=== PATIENT | male | born 1950 | race Caucasian/White ===

== ENCOUNTER 2018-05-24 12:04 | Inpatient (IN) | payer MEDICARE, MEDICAID ==
[~2018-05-24] VITALS: Ht 185.4 cm; Wt 85.0 kg
[~2018-05-24 12:04] MED LIST: ALBU18HF2 IH; CYCL5TAB PO; SPIIN IH
[2018-05-24 12:42] LABS: BASOPHILS % (AUTO) 0 % (0-1); EOSINOPHILS # (AUTO) 0.4 X10'3 (0-0.9); EOSINOPHILS % (AUTO) 1.6 % (0-6); HEMATOCRIT 44.6 % (42.0-52.0); HEMOGLOBIN 14.8 g/dl (14.0-17.9); LYMPHOCYTES # (AUTO) 2.5 X10'3 (1.1-4.8); LYMPHOCYTES % (AUTO) 11.3 % (21-51); MEAN CORPUSCULAR HEMOGLOBIN 28.4 PG (27.0-31.0); MEAN CORPUSCULAR HGB CONC 33.3 % (33.0-36.5); MEAN CORPUSCULAR VOLUME 85.4 FL (78-98); MEAN PLATELET VOLUME 8.1 FL (7.4-10.4); MONOCYTES % (AUTO) 4.4 % (2-12); NEUTROPHILS # (AUTO) 18.5 X10'3 (1.8-7.7); NEUTROPHILS % (AUTO) 82.7 % (42-75); PLATELET COUNT 337 X10'3 (140-440); RED BLOOD COUNT 5.22 X10'6 (4.70-6.10); RED CELL DISTRIBUTION WIDTH 15.7 % (11.5-14.5); WHITE BLOOD COUNT 22.3 X10'3 (4.5-11.0)
[2018-05-24 13:29] LABS: ALANINE AMINOTRANSFERASE 26 U/L (12-78); ALBUMIN 4.3 G/DL (3.4-5.0); ALBUMIN/GLOBULIN RATIO 0.9 (1.1-1.5); ALKALINE PHOSPHATASE 106 IU/L (46-116); ANION GAP 13 (8-16); ASPARTATE AMINO TRANSFERASE 19 U/L (10-37); BILIRUBIN,TOTAL 0.5 MG/DL (0.1-1.0); BLOOD UREA NITROGEN 17 MG/DL (7-18); CHLORIDE 97 MMOL/L (99-107); CREATININE 1.06 MG/DL (0.60-1.10); GLUCOSE 109 MG/DL (70-104); POTASSIUM 4.9 MMOL/L (3.5-5.1); SODIUM 135 MMOL/L (135-145); TOTAL CARBON DIOXIDE 25.1 MMOL/L (24-32); TOTAL PROTEIN 9.3 G/DL (6.4-8.2); eGFR 70 ML/MIN
[2018-05-24 13:37] LABS: MAGNESIUM 1.8 MG/DL (1.5-2.4); TROPONIN I < 0.04 NG/ML (0.0-0.05)
[2018-05-24] MEDS ORDERED: normal saline 1000ML IV soln IV ONE (13:40)
[2018-05-24] MEDS ORDERED: albuterol 2.5 MG/3 ML nebule NEB ONE (13:45)
[2018-05-24] MEDS ORDERED: methylPREDNISolone sod succ 125mg/2ml vial IV ONE (13:45)
[2018-05-24] MEDS ORDERED: ipratropium/albuterol 3ml nebule NEB ONE (13:45)
[2018-05-24] MEDS ORDERED: piperacillin/tazo 3.375gm/50ml 50 ML IV ONE (13:50)
[2018-05-24 15:17] LABS: CLARITY,URINE CLEAR (Clear); COLOR,URINE YELLOW (Yellow); GLUCOSE, URINE NEGATIVE (Neg); KETONES,URINE TRACE mg/dl (Neg); LEUKOCYTE ESTERASE ,URINE NEGATIVE (Neg); NITRITES, URINE NEGATIVE (Neg); OCCULT BLOOD,URINE NEGATIVE (Neg); PROTEIN,URINE NEGATIVE (Neg); UROBILINOGEN,URINE 0.2 E.U/dL (0.2-1.0)
[2018-05-24] MEDS ORDERED: BUPR1FIL3 SL (15:18)
[2018-05-24 15:23] LABS: UA COLLECTION TYPE CLN CATCH MIDSTREAM
[2018-05-24] MEDS ORDERED: acetaminophen 325mg tablet PO STA (16:00)
[2018-05-24] MEDS ORDERED: ondansetron/PF 4mg/2ml inj IV PRN (16:45)
[2018-05-24] MEDS ORDERED: mag hydrox/Alum hydrox/simeth 30ml oral suspension PO PRN (16:45)
[2018-05-24] MEDS ORDERED: HYDROcodone/acetaminophen 5mg/325mg tablet PO PRN (16:45)
[2018-05-24] MEDS ORDERED: acetaminophen 325mg tablet PO PRN (16:45)
[2018-05-24] MEDS ORDERED: magnesium hydroxide 30ml (MOM) UD suspension PO PRN (16:45)
[2018-05-24] MEDS ORDERED: HYDROcodone/acetaminophen 10/325mg tab PO PRN (16:45)
[2018-05-24] MEDS ORDERED: morphine 4 MG/ML inj SYRINge IV PRN ×2 (16:45)
[2018-05-24] MEDS: ceFAZolin 1GM/D5W- ADD-VANTAGE 50 ML IV SCH ×2 (17:37→23:49)
[2018-05-24] MEDS: dextrose 5%-1/2 normal saline 1,000 ML IV SCH (17:37)
[2018-05-24] MEDS ORDERED: FLUT12AE5 IH (18:37)
[2018-05-24 19:20] VITALS: BP 141/64
[2018-05-24 23:30] VITALS: BP_SYST 110; BP_SYST 129; BP_SYST 99; BP_DIAS 49; BP_DIAS 65; BP_DIAS 66
[2018-05-25] VITALS: BP 99/49
[2018-05-25] MEDS: dextrose 5%-1/2 normal saline 1,000 ML IV SCH ×2 (02:48→12:58)
[2018-05-25] MEDS: ipratropium/albuterol 3ml nebule NEB SCH ×4 (03:58→21:37)
[2018-05-25 04:58] LABS: BASOPHILS % (AUTO) 0.1 % (0-1); EOSINOPHILS # (AUTO) 0.2 X10'3 (0-0.9); HEMATOCRIT 35.8 % (42.0-52.0); HEMOGLOBIN 10.5 g/dl (14.0-17.9); LYMPHOCYTES # (AUTO) 1.5 X10'3 (1.1-4.8); LYMPHOCYTES % (AUTO) 6.1 % (21-51); MEAN CORPUSCULAR HEMOGLOBIN 24.9 PG (27.0-31.0); MEAN CORPUSCULAR HGB CONC 29.2 % (33.0-36.5); MEAN CORPUSCULAR VOLUME 85.5 FL (78-98); MEAN PLATELET VOLUME 7.9 FL (7.4-10.4); MONOCYTES # (AUTO) 0.7 X10'3 (0-0.9); MONOCYTES % (AUTO) 2.9 % (2-12); NEUTROPHILS # (AUTO) 21.6 X10'3 (1.8-7.7); NEUTROPHILS % (AUTO) 89.9 % (42-75); PLATELET COUNT 227 X10'3 (140-440); RED BLOOD COUNT 4.19 X10'6 (4.70-6.10); RED CELL DISTRIBUTION WIDTH 15.9 % (11.5-14.5)
[2018-05-25 05:20] LABS: ALBUMIN 3.1 G/DL (3.4-5.0); ANION GAP 11 (8-16); BLOOD UREA NITROGEN 18 MG/DL (7-18); CALCIUM 8.6 MG/DL (8.5-10.1); CHLORIDE 103 MMOL/L (99-107); GLUCOSE 181 MG/DL (70-104); POTASSIUM 4.1 MMOL/L (3.5-5.1); SODIUM 137 MMOL/L (135-145); TOTAL CARBON DIOXIDE 23.4 MMOL/L (24-32); eGFR 84 ML/MIN
[2018-05-25 07:20] VITALS: BP 111/56
[2018-05-25 07:21] VITALS: BP_SYST 111; BP_SYST 115; BP_SYST 124; BP_DIAS 56; BP_DIAS 59; BP_DIAS 60
[2018-05-25] MEDS ORDERED: albuterol 2.5 MG/3 ML nebule NEB PRN (08:25)
[2018-05-25] MEDS ORDERED: buprenorphine/naloxone 8mg/2mg SL tablet SL SCH (08:45)
[2018-05-25] MEDS ORDERED: buprenorphine/naloxone 2-0.5mg sublingual tablet SL ONE (08:55)
[2018-05-25] MEDS: enoxaparin 40mg/0.4ml syringe SUBCUT SCH (09:32)
[2018-05-25] MEDS: ceFAZolin 1GM/D5W- ADD-VANTAGE 50 ML IV SCH ×2 (09:33→16:28)
[2018-05-25] MEDS: acetaminophen 325mg tablet PO PRN ×2 (09:34→21:36)
[2018-05-25] MEDS: budesonide 0.5mg/2ml UD nebule IH SCH ×2 (09:58→21:37)
[2018-05-25 12:32] VITALS: BP 98/49
[2018-05-25] MEDS ORDERED: cyclobenzaprine 10mg tablet PO PRN (13:00)
[2018-05-25 20:00] VITALS: BP_SYST 108; BP_SYST 126; BP_SYST 127; BP_DIAS 53; BP_DIAS 60; BP_DIAS 64
[2018-05-25] MEDS ORDERED: SALMETEROL IH SCH (20:00)
[2018-05-25] MEDS ORDERED: FLUTICASONE IH SCH (20:00)
[2018-05-26] VITALS: BP 109/58
[2018-05-26] MEDS: lactobacillus rhamnosus 10,000 MMU CELLS/CAPSULE PO SCH ×3 (00:05→21:38)
[2018-05-26] MEDS: ceFAZolin 1GM/D5W- ADD-VANTAGE 50 ML IV SCH ×2 (00:06→08:37)
[2018-05-26] MEDS: dextrose 5%-1/2 normal saline 1,000 ML IV SCH ×2 (00:06→11:16)
[2018-05-26] MEDS: ipratropium/albuterol 3ml nebule NEB SCH ×4 (03:08→20:02)
[2018-05-26 05:53] LABS: BASOPHILS % (AUTO) 0 % (0-1); EOSINOPHILS # (AUTO) 0.1 X10'3 (0-0.9); HEMATOCRIT 31.9 % (42.0-52.0); HEMOGLOBIN 10.6 g/dl (14.0-17.9); LYMPHOCYTES # (AUTO) 1.4 X10'3 (1.1-4.8); LYMPHOCYTES % (AUTO) 10.5 % (21-51); MEAN CORPUSCULAR HEMOGLOBIN 28.6 PG (27.0-31.0); MEAN CORPUSCULAR HGB CONC 33.3 % (33.0-36.5); MEAN CORPUSCULAR VOLUME 85.9 FL (78-98); MEAN PLATELET VOLUME 8.1 FL (7.4-10.4); MONOCYTES # (AUTO) 0.6 X10'3 (0-0.9); MONOCYTES % (AUTO) 4.4 % (2-12); NEUTROPHILS # (AUTO) 11.2 X10'3 (1.8-7.7); NEUTROPHILS % (AUTO) 84.1 % (42-75); PLATELET COUNT 204 X10'3 (140-440); RED BLOOD COUNT 3.71 X10'6 (4.70-6.10); RED CELL DISTRIBUTION WIDTH 15.6 % (11.5-14.5); WHITE BLOOD COUNT 13.3 X10'3 (4.5-11.0)
[2018-05-26 06:05] LABS: ALBUMIN 2.9 G/DL (3.4-5.0); ANION GAP 10 (8-16); BLOOD UREA NITROGEN 14 MG/DL (7-18); BUN/CREATININE RATIO 20.6 (5.4-32.0); CALCIUM 8.5 MG/DL (8.5-10.1); CHLORIDE 106 MMOL/L (99-107); CREATININE 0.68 MG/DL (0.60-1.10); GLUCOSE 137 MG/DL (70-104); POTASSIUM 3.7 MMOL/L (3.5-5.1); SODIUM 140 MMOL/L (135-145); TOTAL CARBON DIOXIDE 24.1 MMOL/L (24-32); eGFR > 90 ML/MIN
[2018-05-26 07:00] VITALS: BP_SYST 127; BP_SYST 129; BP_SYST 145; BP_DIAS 67; BP_DIAS 73; BP_DIAS 76
[2018-05-26] MEDS: budesonide 0.5mg/2ml UD nebule IH SCH ×2 (07:16→20:02)
[2018-05-26] MEDS ORDERED: non-formulary drug (Tiotropium Bromide (SPIRIVA inhaler) 1 CAP) IH SCH (08:00)
[2018-05-26] MEDS: enoxaparin 40mg/0.4ml syringe SUBCUT SCH (08:38)
[2018-05-26] MEDS: buprenorphine/naloxone 2-0.5mg sublingual tablet SL SCH (08:38)
[2018-05-26] MEDS ORDERED: vancomycin/NS 1 GM ADD-VANTAGE 250 ML IV SCH (10:40)
[2018-05-26] MEDS: vancomycin inj 1,250 MG in normal saline 250ml IV soln 250 ML IV SCH ×2 (11:16→21:38)
[2018-05-26 12:52] VITALS: BP 132/60
[2018-05-26 20:00] VITALS: BP 139/80
[2018-05-26 20:58] VITALS: BP_SYST 131; BP_SYST 143; BP_DIAS 70; BP_DIAS 72; BP_DIAS 75
[2018-05-26] MEDS: acetaminophen 325mg tablet PO PRN (21:44)
[2018-05-27] VITALS: BP 136/77
[2018-05-27] MEDS: dextrose 5%-1/2 normal saline 1,000 ML IV SCH ×3 (01:25→12:30)
[2018-05-27] MEDS: ipratropium/albuterol 3ml nebule NEB SCH ×4 (02:27→20:00)
[2018-05-27] MEDS: vancomycin inj 1,250 MG in normal saline 250ml IV soln 250 ML IV SCH ×3 (03:59→19:39)
[2018-05-27 05:53] LABS: ALBUMIN 2.8 G/DL (3.4-5.0); ANION GAP 10 (8-16); BLOOD UREA NITROGEN 9 MG/DL (7-18); BUN/CREATININE RATIO 13.8 (5.4-32.0); CALCIUM 8.6 MG/DL (8.5-10.1); CHLORIDE 105 MMOL/L (99-107); CREATININE 0.65 MG/DL (0.60-1.10); GLUCOSE 113 MG/DL (70-104); SODIUM 138 MMOL/L (135-145); TOTAL CARBON DIOXIDE 23.4 MMOL/L (24-32); eGFR > 90 ML/MIN
[2018-05-27 06:31] LABS: BASOPHILS # (AUTO) 0.1 X10'3 (0-0.2); BASOPHILS % (AUTO) 0.7 % (0-1); EOSINOPHILS # (AUTO) 0.1 X10'3 (0-0.9); EOSINOPHILS % (AUTO) 1.6 % (0-6); HEMATOCRIT 33.8 % (42.0-52.0); HEMOGLOBIN 11.4 g/dl (14.0-17.9); LYMPHOCYTES # (AUTO) 2.2 X10'3 (1.1-4.8); LYMPHOCYTES % (AUTO) 26.2 % (21-51); MEAN CORPUSCULAR HEMOGLOBIN 28.6 PG (27.0-31.0); MEAN CORPUSCULAR HGB CONC 33.6 % (33.0-36.5); MEAN PLATELET VOLUME 8.9 FL (7.4-10.4); MONOCYTES # (AUTO) 0.5 X10'3 (0-0.9); MONOCYTES % (AUTO) 6.2 % (2-12); NEUTROPHILS # (AUTO) 5.5 X10'3 (1.8-7.7); NEUTROPHILS % (AUTO) 65.3 % (42-75); PLATELET COUNT 186 X10'3 (140-440); RED BLOOD COUNT 3.97 X10'6 (4.70-6.10); WHITE BLOOD COUNT 8.5 X10'3 (4.5-11.0)
[2018-05-27 07:50] VITALS: BP 132/58
[2018-05-27 07:51] VITALS: BP_SYST 130; BP_SYST 132; BP_SYST 141; BP_DIAS 58; BP_DIAS 79; BP_DIAS 83
[2018-05-27] MEDS: budesonide 0.5mg/2ml UD nebule IH SCH ×2 (08:02→20:00)
[2018-05-27] MEDS: lactobacillus rhamnosus 10,000 MMU CELLS/CAPSULE PO SCH ×2 (09:20→19:40)
[2018-05-27] MEDS: enoxaparin 40mg/0.4ml syringe SUBCUT SCH (09:21)
[2018-05-27] MEDS: buprenorphine/naloxone 2-0.5mg sublingual tablet SL SCH (09:21)
[2018-05-27] MEDS ORDERED: VANCOMYCIN LEVEL IV ONE (10:30)
[2018-05-27 12:12] VITALS: BP 126/51
[2018-05-27 19:00] VITALS: BP 125/72
[2018-05-27] MEDS: acetaminophen 325mg tablet PO PRN (19:40)
[2018-05-27 20:00] VITALS: BP_SYST 125; BP_SYST 144; BP_SYST 147; BP_DIAS 72; BP_DIAS 77; BP_DIAS 78
[2018-05-27] MEDS ORDERED: temazepam 15mg capsule PO PRN (23:35)
[2018-05-28] VITALS: BP 117/61
[2018-05-28] MEDS: dextrose 5%-1/2 normal saline 1,000 ML IV SCH ×2 (02:02→10:41)
[2018-05-28] MEDS: ipratropium/albuterol 3ml nebule NEB SCH ×2 (02:17→09:15)
[2018-05-28] MEDS: vancomycin inj 1,250 MG in normal saline 250ml IV soln 250 ML IV SCH ×2 (03:31→12:28)
[2018-05-28 05:03] LABS: BASOPHILS % (AUTO) 0.7 % (0-1); EOSINOPHILS # (AUTO) 0.2 X10'3 (0-0.9); EOSINOPHILS % (AUTO) 2.7 % (0-6); HEMATOCRIT 35.5 % (42.0-52.0); HEMOGLOBIN 11.7 g/dl (14.0-17.9); LYMPHOCYTES # (AUTO) 1.8 X10'3 (1.1-4.8); MEAN CORPUSCULAR HEMOGLOBIN 28.1 PG (27.0-31.0); MEAN CORPUSCULAR VOLUME 85.4 FL (78-98); MEAN PLATELET VOLUME 8.2 FL (7.4-10.4); MONOCYTES # (AUTO) 0.6 X10'3 (0-0.9); MONOCYTES % (AUTO) 9.1 % (2-12); NEUTROPHILS % (AUTO) 60.5 % (42-75); PLATELET COUNT 217 X10'3 (140-440); RED BLOOD COUNT 4.15 X10'6 (4.70-6.10); RED CELL DISTRIBUTION WIDTH 14.5 % (11.5-14.5); WHITE BLOOD COUNT 6.6 X10'3 (4.5-11.0)
[2018-05-28 05:34] LABS: ALBUMIN 2.8 G/DL (3.4-5.0); ANION GAP 7 (8-16); BLOOD UREA NITROGEN 9 MG/DL (7-18); BUN/CREATININE RATIO 11.4 (5.4-32.0); CALCIUM 8.5 MG/DL (8.5-10.1); CHLORIDE 104 MMOL/L (99-107); CREATININE 0.79 MG/DL (0.60-1.10); GLUCOSE 112 MG/DL (70-104); POTASSIUM 3.6 MMOL/L (3.5-5.1); SODIUM 138 MMOL/L (135-145); TOTAL CARBON DIOXIDE 26.7 MMOL/L (24-32); eGFR > 90 ML/MIN
[2018-05-28 06:55] VITALS: BP 134/71
[2018-05-28] MEDS: lactobacillus rhamnosus 10,000 MMU CELLS/CAPSULE PO SCH (07:21)
[2018-05-28] MEDS: enoxaparin 40mg/0.4ml syringe SUBCUT SCH (07:22)
[2018-05-28] MEDS: budesonide 0.5mg/2ml UD nebule IH SCH (09:15)
[2018-05-28 11:11] VITALS: BP 132/70
[2018-05-28 12:15] VITALS: BP_SYST 137; BP_SYST 145; BP_SYST 155; BP_DIAS 75; BP_DIAS 83
[2018-05-28] MEDS: buprenorphine/naloxone 2-0.5mg sublingual tablet SL SCH (12:28)
[2018-05-28] MEDS: acetaminophen 325mg tablet PO PRN (12:34)
[2018-05-28] MEDS ORDERED: CLIN150C2 PO (12:51)
[2018-05-28] MEDS ORDERED: CYCL-1 PO (14:51)
== END 2018-05-28 15:15 | disposition home or self-care (01) | DRG 872 ==
LOC: ER 12:04 → ED HOLD 16:41 → SUR 3N 19:11
PROVIDERS: ADMIT Internal Medicine; ATTEND Internal Medicine
DX: A41.9 Sepsis, unspecified organism (principal); L03.113 Cellulitis of right upper limb; L02.413 Cutaneous abscess of right upper limb; N17.9 Acute kidney failure, unspecified; J44.9 Chronic obstructive pulmonary disease, unspecified; D64.9 Anemia, unspecified; F32.9 Major depressive disorder, single episode, unspecified; G89.29 Other chronic pain; F17.200 Nicotine dependence, unspecified, uncomplicated; Z79.899 Other long term (current) drug therapy; Z80.1 Family history of malignant neoplasm of trachea, bronchus and lung
CPT/HCPCS: 36415; 71045; 80048; 80053; 80202; 81003; 83605; 83735; 83880; 84145; 84484; 85025; 87040; 87070; 93005; 94640; 94760; 96365; 96375; 99285; J0690; J1650; J2543; J2930; J3370; J7030; J7626

== ENCOUNTER 2019-08-06 10:29 | Emergency (ER) | payer MEDICARE, MEDICAID ==
[~2019-08-06] VITALS: Ht 185.4 cm; Wt 90.0 kg
[~2019-08-06 10:29] MED LIST changes: +BUPR1FIL3 SL; +CYCL-1 PO; +FLUT12AE5 IH
[2019-08-06 11:41] LABS: BASOPHILS # (AUTO) 0.1 X10'3 (0-0.2); BASOPHILS % (AUTO) 0.8 % (0-1); EOSINOPHILS # (AUTO) 0.2 X10'3 (0-0.9); EOSINOPHILS % (AUTO) 2.1 % (0-6); HEMATOCRIT 44.9 % (42.0-52.0); HEMOGLOBIN 15.1 g/dl (14.0-17.9); LYMPHOCYTES % (AUTO) 26.6 % (21-51); MEAN CORPUSCULAR HEMOGLOBIN 28.8 PG (27.0-31.0); MEAN CORPUSCULAR HGB CONC 33.5 g/dL (33.0-36.5); MEAN CORPUSCULAR VOLUME 85.9 FL (78-98); MEAN PLATELET VOLUME 8.7 FL (7.4-10.4); MONOCYTES # (AUTO) 0.5 X10'3 (0-0.9); NEUTROPHILS # (AUTO) 4.9 X10'3 (1.8-7.7); NEUTROPHILS % (AUTO) 63.5 % (42-75); PLATELET COUNT 272 X10'3 (140-440); RED BLOOD COUNT 5.23 X10'6 (4.70-6.10); RED CELL DISTRIBUTION WIDTH 16.3 % (11.5-14.5); WHITE BLOOD COUNT 7.7 X10'3 (4.5-11.0)
[2019-08-06 11:51] LABS: PARTIAL THROMBOPLASTIN TIME 26 SECONDS (22-32)
[2019-08-06 12:05] LABS: ALANINE AMINOTRANSFERASE 21 U/L (12-78); ALBUMIN/GLOBULIN RATIO 0.8 (1.1-1.5); ALKALINE PHOSPHATASE 108 IU/L (46-116); ANION GAP 10 (8-16); ASPARTATE AMINO TRANSFERASE 18 U/L (10-37); BILIRUBIN,TOTAL 0.5 MG/DL (0.1-1.0); BLOOD UREA NITROGEN 16 MG/DL (7-18); BUN/CREATININE RATIO 16.7 (5.4-32.0); CALCIUM 9.2 MG/DL (8.5-10.1); CHLORIDE 102 MMOL/L (99-107); CREATININE 0.96 MG/DL (0.60-1.10); GLUCOSE 157 MG/DL (70-104); POTASSIUM 3.7 MMOL/L (3.5-5.1); SODIUM 137 MMOL/L (135-145); TOTAL PROTEIN 8.8 G/DL (6.4-8.2); eGFR 78 ML/MIN
--- NOTE | 2019-08-06 12:41 | NUR ---
Pt notes episode of burning pain to the chest and left arm that last 1-2 minutes occurring "a few" days ago. Since that time pt states he has felt "off".
[2019-08-06] MEDS ORDERED: iohexol 350MG/ML 100ml bottle IV ONE (14:35)
[2019-08-06 16:26] VITALS: BP 137/93
== END 2019-08-06 16:28 | disposition home or self-care (01) ==
LOC: ER 10:29
DX: R07.89 Other chest pain (principal); R06.02 Shortness of breath; J44.9 Chronic obstructive pulmonary disease, unspecified; G89.29 Other chronic pain; F32.9 Major depressive disorder, single episode, unspecified; Z87.891 Personal history of nicotine dependence; Z60.2 Problems related to living alone; Z79.899 Other long term (current) drug therapy
CPT/HCPCS: 36415; 71045; 71275; 80053; 84484; 85025; 85379; 85610; 85730; 93005; 99284; Q9967

== ENCOUNTER 2021-08-03 13:21 | Emergency (ER) | payer MEDICARE, MEDICAID ==
[~2021-08-03] VITALS: Ht 185.4 cm; Wt 88.2 kg
[2021-08-03 13:49] VITALS: BP 131/89
[2021-08-03] MEDS ORDERED: DOXY-411 PO (14:44)
== END 2021-08-03 18:37 | disposition home or self-care (01) ==
LOC: ER 13:22
DX: H60.12 Cellulitis of left external ear (principal); J44.9 Chronic obstructive pulmonary disease, unspecified; G89.29 Other chronic pain; Z79.2 Long term (current) use of antibiotics; Z79.899 Other long term (current) drug therapy
CPT/HCPCS: 99283

== ENCOUNTER 2022-10-05 16:33 | Emergency (ER) | payer MEDICARE, MEDICAID ==
[~2022-10-05] VITALS: Ht 185.4 cm; Wt 86.4 kg
[2022-10-05 18:17] LABS: BASOPHILS % (AUTO) 0.3 % (0-1); EOSINOPHILS % (AUTO) 0.2 % (0-6); HEMATOCRIT 37.5 % (42.0-52.0); HEMOGLOBIN 12.7 g/dl (14.0-17.9); LYMPHOCYTES # (AUTO) 1.8 X10'3 (1.1-4.8); LYMPHOCYTES % (AUTO) 20.8 % (21-51); MEAN CORPUSCULAR HEMOGLOBIN 30.7 PG (27.0-31.0); MEAN CORPUSCULAR HGB CONC 33.9 g/dL (33.0-36.5); MEAN CORPUSCULAR VOLUME 90.5 FL (78-98); MEAN PLATELET VOLUME 7.7 FL (7.4-10.4); MONOCYTES # (AUTO) 0.6 X10'3 (0-0.9); MONOCYTES % (AUTO) 6.7 % (2-12); NEUTROPHILS # (AUTO) 6.3 X10'3 (1.8-7.7); PLATELET COUNT 232 X10'3 (140-440); RED BLOOD COUNT 4.14 X10'6 (4.70-6.10); RED CELL DISTRIBUTION WIDTH 15.7 % (11.5-14.5); WHITE BLOOD COUNT 8.7 X10'3 (4.5-11.0)
[2022-10-05 18:30] LABS: ALANINE AMINOTRANSFERASE 20 U/L (12-78); ALBUMIN 3.8 G/DL (3.4-5.0); ALBUMIN/GLOBULIN RATIO 1.1 (1.1-1.5); ALKALINE PHOSPHATASE 58 IU/L (46-116); ANION GAP 9 (8-16); ASPARTATE AMINO TRANSFERASE 17 U/L (10-37); BILIRUBIN,TOTAL 0.5 MG/DL (0.1-1.0); BLOOD UREA NITROGEN 19 MG/DL (7-18); BUN/CREATININE RATIO 27.9 (5.4-32.0); CALCIUM 9.2 MG/DL (8.5-10.1); CHLORIDE 99 MMOL/L (99-107); CREATININE 0.68 MG/DL (0.60-1.10); GLUCOSE 108 MG/DL (70-104); POTASSIUM 4.2 MMOL/L (3.5-5.1); SODIUM 134 MMOL/L (135-145); TOTAL CARBON DIOXIDE 26.2 MMOL/L (24-32); TOTAL PROTEIN 7.2 G/DL (6.4-8.2); eGFR > 90 ML/MIN
[2022-10-05] MEDS ORDERED: furosemide 40mg/4ml inj IV ONE (20:50)
[2022-10-05] MEDS ORDERED: POTASSIUM BICARB 20meq eff tab 20 MEQ TABLET.EFF PO ONE (20:50)
[2022-10-05] MEDS ORDERED: furosemide 10 MG/1 ML 10ml inj IV ONE (20:50)
[2022-10-05] MEDS ORDERED: furosemide 20MG tablet PO ONE (21:05)
[2022-10-05 21:10] VITALS: BP 137/78
[2022-10-05] MEDS ORDERED: FURO-150 PO (21:25)
[2022-10-05] MEDS ORDERED: POTA20PA40 PO (21:25)
== END 2022-10-05 21:32 | disposition home or self-care (01) ==
LOC: ER 16:36
DX: R60.0 Localized edema (principal); J44.9 Chronic obstructive pulmonary disease, unspecified; G89.29 Other chronic pain; F32.A Depression, unspecified; Z72.89 Other problems related to lifestyle; Z85.9 Personal history of malignant neoplasm, unspecified; Z79.899 Other long term (current) drug therapy
CPT/HCPCS: 36415; 71045; 80053; 83880; 84484; 85025; 93005; 99285; J7030; A4620

== ENCOUNTER 2023-10-09 21:41 | Emergency (ER) | payer MEDICARE, MEDICAID ==
[~2023-10-09] VITALS: Ht 185.4 cm; Wt 77.3 kg
[~2023-10-09 21:41] MED LIST changes: +BISO5TAB29 PO; -CYCL5TAB PO; +DOCU100C40 PO; +FER325T PO; +FLO0.4C PO; -FLUT12AE5 IH; +HYDR-3964 PO; +LISI10TA27 PO; +MOME13HF11 INH; +PANT40TA54 PO; +POLY17PO10 PO; +SPIR25TA5 PO
[2023-10-09 23:22] LABS: BILIRUBIN,URINE NEGATIVE (Neg); CLARITY,URINE CLEAR (Clear); COLOR,URINE YELLOW (Yellow); GLUCOSE, URINE NEGATIVE (Neg); KETONES,URINE NEGATIVE (Neg); LEUKOCYTE ESTERASE ,URINE NEGATIVE (Neg); NITRITES, URINE NEGATIVE (Neg); OCCULT BLOOD,URINE NEGATIVE (Neg); PH,URINE 5.5 (4.8-8.0); PROTEIN,URINE NEGATIVE (Neg); UROBILINOGEN,URINE 0.2 E.U/dL (0.2-1.0)
[2023-10-09 23:29] LABS: UA COLLECTION TYPE CLN CATCH MIDSTREAM
[2023-10-09 23:34] LABS: ALANINE AMINOTRANSFERASE 13 U/L (12-78); ALBUMIN 3.9 G/DL (3.4-5.0); ALKALINE PHOSPHATASE 88 IU/L (46-116); ANION GAP 12 (8-16); ASPARTATE AMINO TRANSFERASE 11 U/L (10-37); BILIRUBIN,TOTAL 0.5 MG/DL (0.1-1.0); BLOOD UREA NITROGEN 29 MG/DL (7-18); BUN/CREATININE RATIO 25.2 (10.0-20.0); CALCIUM 9.2 MG/DL (8.5-10.1); CHLORIDE 100 MMOL/L (99-107); CREATININE 1.15 MG/DL (0.60-1.10); GLUCOSE 100 MG/DL (70-104); LIPASE 23 U/L (16-77); POTASSIUM 3.5 MMOL/L (3.5-5.1); SODIUM 143 MMOL/L (135-145); TOTAL CARBON DIOXIDE 31.5 MMOL/L (24-32); TOTAL PROTEIN 7.7 G/DL (6.4-8.2); eCRCL 63 ML/MIN; eGFR 63 ML/MIN
[2023-10-10] MEDS ORDERED: acetaminophen 325mg tablet PO ONE (01:15)
[2023-10-10] MEDS ORDERED: LIDOcaine 5% patch TP ONE (01:15)
[2023-10-10] MEDS ORDERED: normal saline 1000ml 1,000 ML IV ONE (01:25)
[2023-10-10 01:59] LABS: D-DIMER 1.14 MG/L FEU (0-0.50)
[2023-10-10 02:41] LABS: BASOPHILS # (AUTO) 0.1 X10'3 (0-0.2); BASOPHILS % (AUTO) 0.7 % (0-1); EOSINOPHILS # (AUTO) 0.1 X10'3 (0-0.9); EOSINOPHILS % (AUTO) 0.7 % (0-6); HEMATOCRIT 34.1 % (42.0-52.0); HEMOGLOBIN 10.7 g/dl (14.0-17.9); LYMPHOCYTES # (AUTO) 3.3 X10'3 (1.1-4.8); LYMPHOCYTES % (AUTO) 30.9 % (21-51); MEAN CORPUSCULAR HEMOGLOBIN 25.4 PG (27.0-31.0); MEAN CORPUSCULAR HGB CONC 31.5 g/dL (33.0-36.5); MEAN CORPUSCULAR VOLUME 80.6 FL (78-98); MEAN PLATELET VOLUME 8.5 FL (7.4-10.4); MONOCYTES # (AUTO) 0.7 X10'3 (0-0.9); MONOCYTES % (AUTO) 6.3 % (2-12); NEUTROPHILS # (AUTO) 6.5 X10'3 (1.8-7.7); NEUTROPHILS % (AUTO) 61.4 % (42-75); PLATELET COUNT 199 X10'3 (140-440); RED BLOOD COUNT 4.23 X10'6 (4.70-6.10); RED CELL DISTRIBUTION WIDTH 30.8 % (11.5-14.5); WHITE BLOOD COUNT 10.6 X10'3 (4.5-11.0)
[2023-10-10] MEDS ORDERED: iohexol 350MG/ML 100ml bottle IV ONE (03:06)
[2023-10-10 03:43] LABS: ANISOCYTOSIS 3+; HYPOCHROMASIA 1+; PLATELET ESTIMATE NORMAL
[2023-10-10 03:44] LABS: ELLIPTOCYTES FEW; POIKILOCYTOSIS FEW
[2023-10-10 04:52] VITALS: BP 125/62; PULSE 55; RESP 18; TEMP 98.1; O2SAT 100
== END 2023-10-10 05:07 | disposition home or self-care (01) ==
LOC: ER 21:42
DX: M54.50 Low back pain, unspecified (principal); I50.9 Heart failure, unspecified; J44.9 Chronic obstructive pulmonary disease, unspecified; G89.29 Other chronic pain; Z85.9 Personal history of malignant neoplasm, unspecified; Z79.899 Other long term (current) drug therapy
CPT/HCPCS: 36415; 71275; 80053; 81003; 83690; 85008; 85025; 85379; 96360; 96361; 99285; J3490; J7030; Q9967; A4615

== ENCOUNTER 2024-02-26 20:21 | Inpatient (IN) | payer MEDICARE, MEDICAID ==
[~2024-02-26] VITALS: Ht 185.4 cm; Wt 77.0 kg
[2024-02-26 20:58] LABS: BASOPHILS % (AUTO) 0.1 % (0-1); EOSINOPHILS % (AUTO) 0.3 % (0-6); HEMATOCRIT 39.4 % (42.0-52.0); HEMOGLOBIN 13.2 g/dl (14.0-17.9); LYMPHOCYTES # (AUTO) 1.8 X10'3 (1.1-4.8); LYMPHOCYTES % (AUTO) 25.3 % (21-51); MEAN CORPUSCULAR HEMOGLOBIN 31.1 PG (27.0-31.0); MEAN CORPUSCULAR HGB CONC 33.5 g/dL (33.0-36.5); MEAN CORPUSCULAR VOLUME 92.9 FL (78-98); MEAN PLATELET VOLUME 8.5 FL (7.4-10.4); MONOCYTES # (AUTO) 0.4 X10'3 (0-0.9); NEUTROPHILS # (AUTO) 4.8 X10'3 (1.8-7.7); NEUTROPHILS % (AUTO) 68.3 % (42-75); PLATELET COUNT 183 X10'3 (140-440); RED BLOOD COUNT 4.24 X10'6 (4.70-6.10); RED CELL DISTRIBUTION WIDTH 16.7 % (11.5-14.5)
[2024-02-26 21:04] LABS: ALBUMIN 3.3 G/DL (3.4-5.0); ANION GAP 7 (8-16); BLOOD UREA NITROGEN 42 MG/DL (7-18); BUN/CREATININE RATIO 33.1 (10.0-20.0); CHLORIDE 100 MMOL/L (99-107); CREATININE 1.27 MG/DL (0.60-1.10); GLUCOSE 133 MG/DL (70-104); POTASSIUM 4.1 MMOL/L (3.5-5.1); PRO BRAIN NATRIURETIC PEPTIDE 369 PG/ML (0-125); SODIUM 137 MMOL/L (135-145); TOTAL CARBON DIOXIDE 29.7 MMOL/L (24-32); eCRCL 57 ML/MIN; eGFR 56 ML/MIN
[2024-02-26] MEDS: methylPREDNISolone sod succ 125mg/2ml vial IV ONE ×2 (21:09→21:42)
[2024-02-26] MEDS: morphine 4 MG/ML inj SYRINge IV ONE ×2 (21:11→21:42)
[2024-02-26] MEDS: ipratropium/albuterol 3ml nebule NEB ONE (21:16)
[2024-02-26 21:17] VITALS: PULSE 97; RESP 18; O2SAT 99
[2024-02-26 21:24] VITALS: PULSE 87; RESP 18; O2SAT 95
[2024-02-26] MEDS: normal saline 1000ml 1,000 ML IV ONE (23:25)
[2024-02-26] MEDS: piperacillin/tazo 4.5gm/100ml 100 ML IV SCH (23:25)
[2024-02-27] VITALS (10 sets, daily range): BP systolic 115–137; BP diastolic 7–67; PULSE 62–74; RESP 18–20; TEMP 97.9–98.4; O2SAT 96–98
[2024-02-27] MEDS: HYDROcodone/acetaminophen 5mg/325mg tablet PO ONE ×2 (00:22→12:39)
[2024-02-27] MEDS ORDERED: magnesium 4gm in 100ml NS 100 ML IV PRN (01:00)
[2024-02-27] MEDS ORDERED: potassium Cl 20 mEq SR tablet PO PRN ×2 (01:00)
[2024-02-27] MEDS ORDERED: acetaminophen 325mg tablet PO PRN (01:00)
[2024-02-27] MEDS ORDERED: ondansetron/PF 4mg/2ml inj IV PRN (01:00)
[2024-02-27] MEDS ORDERED: magnesium 2GM in 50ml NS 50 ML IV PRN (01:00)
[2024-02-27] MEDS ORDERED: potassium Cl 40MEQ/1/2NS 520ml 520 ML IV PRN (01:00)
[2024-02-27] MEDS ORDERED: magnesium Cl slow-release 64mg tablet PO PRN (01:00)
[2024-02-27 01:44] LABS: MAGNESIUM 2.5 MG/DL (1.5-2.4); POTASSIUM 4.4 MMOL/L (3.5-5.1)
[2024-02-27] MEDS: K and/or MAG REPLACEMENT MC SCH (08:00)
[2024-02-27] MEDS: azithromycin/NS 500mg/250ml 250 ML IV SCH (08:17)
[2024-02-27] MEDS: heparin, porcine 5000 units/ml vial SQ SCH (08:22)
[2024-02-27] MEDS: docusate sod 100mg capsule PO SCH (08:23)
[2024-02-27] MEDS ORDERED: ipratropium/albuterol 3ml nebule NEB PRN (08:40)
[2024-02-27] MEDS: ipratropium/albuterol 3ml nebule NEB SCH (08:40)
[2024-02-27] MEDS: methylPREDNISolone sod succ 125mg/2ml vial IV SCH (09:58)
[2024-02-27] MEDS: CefTRIAXone/D5W-Rocephin 1gm 50 ML IV SCH (11:23)
[2024-02-27] MEDS: HYDROcodone/acetaminophen 5mg/325mg tablet PO PRN (11:38)
[2024-02-27] MEDS ORDERED: OXYC10TA47 PO (16:17)
[2024-02-27] MEDS ORDERED: DAPA10TA PO (16:17)
[2024-02-27] MEDS ORDERED: APIX5TAB3 PO (16:17)
[2024-02-27] MEDS ORDERED: FURO40TA4 PO (16:17)
[2024-02-27] MEDS: HYDROcodone/acetaminophen 10/325mg tab PO PRN (16:50)
[2024-02-27] MEDS ORDERED: ALBUTEROL SULFATE 90 MCG IH SCH (20:00)
[2024-02-27] MEDS: albuterol 60 PUFF/8GM Inhaler (90mcg/1 puff) IH SCH ×2 (20:25→20:26)
[2024-02-27] MEDS ORDERED: temazepam 15mg capsule PO PRN (21:00)
[2024-02-27] MEDS: apixaban 5mg tablet PO SCH (21:05)
[2024-02-27] MEDS: guaiFENesin ER 600mg tablet PO SCH (21:05)
[2024-02-28] VITALS (11 sets, daily range): BP systolic 116–124; BP diastolic 63–78; PULSE 55–75; RESP 16–20; TEMP 97.4–99.3; O2SAT 94–96
[2024-02-28 11:12] LABS: BASOPHILS % (AUTO) 0.2 % (0-1); EOSINOPHILS % (AUTO) 0 % (0-6); HEMATOCRIT 38.3 % (42.0-52.0); HEMOGLOBIN 12.6 g/dl (14.0-17.9); LYMPHOCYTES # (AUTO) 0.6 X10'3 (1.1-4.8); LYMPHOCYTES % (AUTO) 5.8 % (21-51); MEAN PLATELET VOLUME 8.6 FL (7.4-10.4); MONOCYTES # (AUTO) 0.3 X10'3 (0-0.9); MONOCYTES % (AUTO) 3.5 % (2-12); NEUTROPHILS # (AUTO) 8.6 X10'3 (1.8-7.7); NEUTROPHILS % (AUTO) 90.5 % (42-75); PLATELET COUNT 164 X10'3 (140-440); RED BLOOD COUNT 4.08 X10'6 (4.70-6.10); RED CELL DISTRIBUTION WIDTH 16.8 % (11.5-14.5); WHITE BLOOD COUNT 9.5 X10'3 (4.5-11.0)
[2024-02-28 11:19] LABS: ALBUMIN 2.8 G/DL (3.4-5.0); ANION GAP 6 (8-16); BLOOD UREA NITROGEN 49 MG/DL (7-18); CALCIUM 8.7 MG/DL (8.5-10.1); CHLORIDE 101 MMOL/L (99-107); CREATININE 0.98 MG/DL (0.60-1.10); GLUCOSE 173 MG/DL (70-104); MAGNESIUM 2.5 MG/DL (1.5-2.4); SODIUM 136 MMOL/L (135-145); TOTAL CARBON DIOXIDE 29.2 MMOL/L (24-32); eCRCL 74 ML/MIN; eGFR 75 ML/MIN
[2024-02-28] MEDS ORDERED: cyclobenzaprine 10mg tablet PO PRN (17:35)
[2024-02-28] MEDS: lisinopril 10 MG tablet PO SCH (20:13)
[2024-02-28] MEDS: tamsulosin 0.4mg capsule PO SCH (20:14)
[2024-02-28] MEDS: methylPREDNISolone sod succ 125mg/2ml vial IV SCH (20:14)
[2024-02-29 02:00] VITALS: BP 116/80; PULSE 76; RESP 18; TEMP 97.2; O2SAT 95
[2024-02-29 08:01] VITALS: PULSE 75; RESP 18; O2SAT 94
[2024-02-29] MEDS: spironolactone 25 MG tablet PO SCH (08:29)
[2024-02-29] MEDS: bisoprolol 5mg tablet PO SCH (08:30)
[2024-02-29] MEDS: DAPAGLIFLOZIN 10MG TABLET PO SCH (08:30)
[2024-02-29 08:56] VITALS: BP 109/63; PULSE 66; RESP 20; TEMP 98; O2SAT 97
[2024-02-29] MEDS ORDERED: PRED10TA23 PO (10:20)
[2024-02-29 10:29] LABS: ANION GAP 11 (8-16); BLOOD UREA NITROGEN 40 MG/DL (7-18); BUN/CREATININE RATIO 40.8 (10.0-20.0); CALCIUM 9.2 MG/DL (8.5-10.1); CHLORIDE 101 MMOL/L (99-107); CREATININE 0.98 MG/DL (0.60-1.10); GLUCOSE 141 MG/DL (70-104); MAGNESIUM 2.5 MG/DL (1.5-2.4); PHOSPHORUS 3.5 MG/DL (2.3-4.5); POTASSIUM 5.2 MMOL/L (3.5-5.1); SODIUM 134 MMOL/L (135-145); TOTAL CARBON DIOXIDE 22.4 MMOL/L (24-32); eCRCL 74 ML/MIN; eGFR 75 ML/MIN
[2024-02-29] MEDS ORDERED: HYDR-3965 PO (10:30)
[2024-02-29 11:55] VITALS: PULSE 91; RESP 18; O2SAT 91
[2024-02-29] MEDS: furosemide 20 MG/2 ML vial IV ONE (12:10)
== END 2024-02-29 13:00 | disposition home or self-care (01) | DRG 177 ==
LOC: ER 20:22 → ED HOLD 02-27 01:01 → PCU 3S 02-27 15:00
PROVIDERS: ADMIT Internal Medicine; ATTEND Internal Medicine
DX: U07.1 COVID-19 (principal); J12.82 Pneumonia due to coronavirus disease 2019; N17.0 Acute kidney failure with tubular necrosis; J96.21 Acute and chronic respiratory failure with hypoxia; I50.32 Chronic diastolic (congestive) heart failure; J44.1 Chronic obstructive pulmonary disease with (acute) exacerbation; J44.0 Chronic obstructive pulmonary disease with (acute) lower respiratory infection; N40.0 Benign prostatic hyperplasia without lower urinary tract symptoms; I11.0 Hypertensive heart disease with heart failure; E11.9 Type 2 diabetes mellitus without complications; F32.A Depression, unspecified; G89.29 Other chronic pain; Z87.891 Personal history of nicotine dependence; Z85.828 Personal history of other malignant neoplasm of skin; Z85.46 Personal history of malignant neoplasm of prostate; Z83.3 Family history of diabetes mellitus; Z79.4 Long term (current) use of insulin; Z86.711 Personal history of pulmonary embolism; Z80.8 Family history of malignant neoplasm of other organs or systems
CPT/HCPCS: 36415; 71045; 80048; 83605; 83735; 83880; 84100; 84132; 84484; 85025; 87040; 87081; 87502; 87503; 87811; 93005; 94640; 94760; 96365; 96375; 99285; G0378; J0456; J0696; J1644; J1940; J2270; J2543; J2930; J7030; J7040

== ENCOUNTER 2024-09-20 12:48 | Inpatient (IN) | payer MEDICARE, MEDICAID ==
[~2024-09-20] VITALS: Ht 177.8 cm; Wt 77.9 kg
[~2024-09-20 12:48] MED LIST changes: +ALBU2.5V7 NEB; +APIX5TAB3 PO; +AZI25OT PO; +DAPA10TA PO; +FLUT1BLS4 INH; +FURO40TA4 PO; +GUAI600T45 PO; -MOME13HF11 INH; +OXYC10TA47 PO; +PRED10TA23 PO; -SPIIN IH
[2024-09-20 13:16] LABS: BASOPHILS % (AUTO) 0.5 % (0-1); EOSINOPHILS % (AUTO) 0.4 % (0-6); HEMATOCRIT 33.5 % (42.0-52.0); HEMOGLOBIN 10.9 g/dl (14.0-17.9); LYMPHOCYTES # (AUTO) 0.8 X10'3 (1.1-4.8); LYMPHOCYTES % (AUTO) 10.8 % (21-51); MEAN CORPUSCULAR HEMOGLOBIN 26.8 PG (27.0-31.0); MEAN CORPUSCULAR HGB CONC 32.6 g/dL (33.0-36.5); MEAN CORPUSCULAR VOLUME 82.1 FL (78-98); MEAN PLATELET VOLUME 8.1 FL (7.4-10.4); MONOCYTES # (AUTO) 0.3 X10'3 (0-0.9); MONOCYTES % (AUTO) 4.4 % (2-12); NEUTROPHILS # (AUTO) 6.5 X10'3 (1.8-7.7); NEUTROPHILS % (AUTO) 83.9 % (42-75); PLATELET COUNT 212 X10'3 (140-440); RED BLOOD COUNT 4.08 X10'6 (4.70-6.10); RED CELL DISTRIBUTION WIDTH 20.8 % (11.5-14.5); WHITE BLOOD COUNT 7.7 X10'3 (4.5-11.0)
[2024-09-20 13:39] LABS: ALBUMIN 3.6 G/DL (3.4-5.0); ANION GAP 6 (8-16); ANISOCYTOSIS 3+; BLOOD UREA NITROGEN 18 MG/DL (7-18); BUN/CREATININE RATIO 20.5 (10.0-20.0); CALCIUM 8.5 MG/DL (8.5-10.1); CHLORIDE 104 MMOL/L (99-107); CREATININE 0.88 MG/DL (0.60-1.10); GLUCOSE 98 MG/DL (70-104); PLATELET ESTIMATE DECREASED; SODIUM 144 MMOL/L (135-145); TOTAL CARBON DIOXIDE 34.5 MMOL/L (24-32); eCRCL 77 ML/MIN; eGFR 85 ML/MIN
[2024-09-20 13:40] LABS: ELLIPTOCYTES FEW; STOMATOCYTES FEW
[2024-09-20 14:02] LABS: POTASSIUM 3.7 MMOL/L (3.5-5.1)
[2024-09-20] MEDS: ipratropium/albuterol 3ml nebule NEB ONE (14:12)
[2024-09-20 14:13] VITALS: PULSE 84; RESP 14; O2SAT 92
[2024-09-20] MEDS: methylPREDNISolone sod succ 125mg/2ml vial IV ONE (14:19)
[2024-09-20 14:20] VITALS: PULSE 88; RESP 14; O2SAT 97
[2024-09-20] MEDS: CefTRIAXone 2gm/D5W 50ml BAG 50 ML IV ONE (14:23)
[2024-09-20] MEDS ORDERED: magnesium Cl slow-release 64mg tablet PO PRN (14:40)
[2024-09-20] MEDS ORDERED: magnesium sulf-water 2g/50mL 50 ML IV PRN (14:40)
[2024-09-20] MEDS ORDERED: mag hydrox/Alum hydrox/simeth 30ml oral suspension PO PRN (14:40)
[2024-09-20] MEDS ORDERED: potassium Cl 40MEQ/1/2NS 520ml 520 ML IV PRN (14:40)
[2024-09-20] MEDS ORDERED: potassium Cl 20 mEq SR tablet PO PRN ×2 (14:40)
[2024-09-20] MEDS ORDERED: acetaminophen 325mg tablet PO PRN ×2 (14:40)
[2024-09-20] MEDS ORDERED: HYDROcodone/acetaminophen 10/325mg tab PO PRN (14:40)
[2024-09-20] MEDS ORDERED: magnesium sulf-water 4G/100mL 100 ML IV PRN (14:40)
[2024-09-20] MEDS ORDERED: ondansetron/PF 4mg/2ml inj IV PRN (14:40)
[2024-09-20] MEDS ORDERED: HYDROcodone/acetaminophen 5mg/325mg tablet PO PRN (14:40)
[2024-09-20] MEDS ORDERED: morphine 2 MG/ML inj. syringe IV PRN (14:40)
[2024-09-20] MEDS: methylPREDNISolone sod succ 125mg/2ml vial IV SCH (15:20)
[2024-09-20] MEDS: ipratropium/albuterol 3ml nebule NEB SCH (15:20)
[2024-09-20] MEDS ORDERED: albuterol 2.5 MG/3 ML nebule NEB PRN (15:20)
[2024-09-20] MEDS: azithromycin 250mg tablet PO SCH (15:35)
[2024-09-20 17:21] LABS: PRO BRAIN NATRIURETIC PEPTIDE 1741 PG/ML (0-125)
[2024-09-20] MEDS ORDERED: POTA8TAB69 PO (17:23)
[2024-09-20] MEDS ORDERED: PANT-47 PO (17:23)
[2024-09-20] MEDS ORDERED: MIDO5TAB4 PO (17:23)
[2024-09-20] MEDS ORDERED: RIVA20TA PO (17:23)
[2024-09-20] MEDS ORDERED: PRED10TA PO (17:23)
[2024-09-20] MEDS: rivaroxaban 20mg tablet PO SCH (18:01)
[2024-09-20] MEDS ORDERED: non-formulary drug (Oxycodone Hcl 1 TAB) PO SCH (20:00)
[2024-09-20] MEDS ORDERED: rivaroxaban 10mg tablet PO SCH (20:00)
[2024-09-20] MEDS: K and/or MAG REPLACEMENT MC SCH (20:00)
[2024-09-20 20:44] VITALS: PULSE 65; RESP 14; O2SAT 95
[2024-09-20 20:49] VITALS: PULSE 60; RESP 14
[2024-09-20] MEDS: buprenorphine/naloxone 8MG-2MG SUBlingual film SL SCH (21:21)
[2024-09-20] MEDS: tamsulosin 0.4mg capsule PO SCH (21:22)
[2024-09-20 22:59] VITALS: PULSE 68; RESP 16; O2SAT 98
[2024-09-20 23:04] VITALS: PULSE 69; RESP 14
[2024-09-21] VITALS (12 sets, daily range): PULSE 64–109; RESP 15–20; O2SAT 95–98
[2024-09-21 03:37] LABS: BASOPHILS % (AUTO) 0.2 % (0-1); EOSINOPHILS % (AUTO) 0 % (0-6); HEMATOCRIT 29.3 % (42.0-52.0); HEMOGLOBIN 9.7 g/dl (14.0-17.9); LYMPHOCYTES # (AUTO) 0.5 X10'3 (1.1-4.8); MEAN CORPUSCULAR HEMOGLOBIN 26.8 PG (27.0-31.0); MEAN CORPUSCULAR VOLUME 81.1 FL (78-98); MEAN PLATELET VOLUME 8.2 FL (7.4-10.4); MONOCYTES # (AUTO) 0.2 X10'3 (0-0.9); MONOCYTES % (AUTO) 4.8 % (2-12); NEUTROPHILS # (AUTO) 4.2 X10'3 (1.8-7.7); PLATELET COUNT 171 X10'3 (140-440); RED BLOOD COUNT 3.61 X10'6 (4.70-6.10); RED CELL DISTRIBUTION WIDTH 20.8 % (11.5-14.5)
[2024-09-21 03:47] LABS: INR 1.1 INR; PROTHROMBIN TIME 11.9 SECONDS (9.0-12.0)
[2024-09-21 03:55] LABS: ANION GAP 6 (8-16); BLOOD UREA NITROGEN 28 MG/DL (7-18); BUN/CREATININE RATIO 29.8 (10.0-20.0); CALCIUM 8.5 MG/DL (8.5-10.1); CHLORIDE 104 MMOL/L (99-107); CREATININE 0.94 MG/DL (0.60-1.10); GLUCOSE 189 MG/DL (70-104); MAGNESIUM 2.1 MG/DL (1.5-2.4); PHOSPHORUS 3.9 MG/DL (2.3-4.5); POTASSIUM 3.9 MMOL/L (3.5-5.1); SODIUM 141 MMOL/L (135-145); TOTAL CARBON DIOXIDE 31.2 MMOL/L (24-32); eCRCL 72 ML/MIN; eGFR 79 ML/MIN
[2024-09-21] MEDS: furosemide 10 MG/1 ML 10ml inj IV SCH (07:49)
[2024-09-21] MEDS: CefTRIAXone/D5W-Rocephin 1gm 50 ML IV SCH (07:50)
[2024-09-21] MEDS: pantoprazole 40mg Tablet.DR PO SCH (07:50)
[2024-09-21] MEDS: DAPAGLIFLOZIN 10MG TABLET PO SCH (08:25)
[2024-09-21 10:33] LABS: BILIRUBIN,URINE NEGATIVE (Neg); CLARITY,URINE CLEAR (Clear); COLOR,URINE YELLOW (Yellow); GLUCOSE, URINE NEGATIVE (Neg); KETONES,URINE NEGATIVE (Neg); LEUKOCYTE ESTERASE ,URINE NEGATIVE (Neg); NITRITES, URINE NEGATIVE (Neg); OCCULT BLOOD,URINE NEGATIVE (Neg); PROTEIN,URINE TRACE mg/dl (Neg); UROBILINOGEN,URINE 0.2 E.U/dL (0.2-1.0)
[2024-09-21 10:36] LABS: UA COLLECTION TYPE CLN CATCH MIDSTREAM
[2024-09-21 10:41] LABS: BACTERIA,URINE NONE SEEN /HPF (Neg); RBC,URINE 0-2 /HPF (0-2); SQUAMOUS EPITHELIAL CELL,UR NONE SEEN /LPF (FEW); WBC,URINE 0-4 /HPF (0-4)
[2024-09-21 10:42] LABS: MUCUS STRANDS FEW /LPF (Neg)
[2024-09-21 10:48] LABS: URINE AMPHETAMINE SCREEN NEGATIVE (Neg); URINE BARBITUATE SCREEN NEGATIVE (Neg); URINE BENZODIAZEPINES SCREEN NEGATIVE (Neg); URINE CANNABINOID SCREEN NEGATIVE (Neg); URINE COCAINE SCREEN NEGATIVE (Neg); URINE METHADONE SCREEN NEGATIVE (Neg); URINE OPIATE SCREEN NEGATIVE (Neg); URINE PHENCYCLIDINE SCREEN NEGATIVE (Neg)
[2024-09-21] MEDS: guaiFENesin ER 600mg tablet PO SCH (17:54)
[2024-09-22] VITALS (21 sets, daily range): BP systolic 107–144; BP diastolic 62–75; PULSE 53–140; RESP 12–20; TEMP 97.3–98.4; O2SAT 93–98
[2024-09-22 07:41] LABS: BASOPHILS % (AUTO) 0.1 % (0-1); EOSINOPHILS % (AUTO) 0 % (0-6); HEMATOCRIT 28.3 % (42.0-52.0); HEMOGLOBIN 9.3 g/dl (14.0-17.9); LYMPHOCYTES # (AUTO) 0.7 X10'3 (1.1-4.8); LYMPHOCYTES % (AUTO) 9.3 % (21-51); MEAN CORPUSCULAR HEMOGLOBIN 26.9 PG (27.0-31.0); MEAN CORPUSCULAR VOLUME 81.5 FL (78-98); MEAN PLATELET VOLUME 8.4 FL (7.4-10.4); MONOCYTES # (AUTO) 0.4 X10'3 (0-0.9); MONOCYTES % (AUTO) 5.2 % (2-12); NEUTROPHILS # (AUTO) 6.5 X10'3 (1.8-7.7); NEUTROPHILS % (AUTO) 85.4 % (42-75); PLATELET COUNT 168 X10'3 (140-440); RED BLOOD COUNT 3.47 X10'6 (4.70-6.10); RED CELL DISTRIBUTION WIDTH 20.5 % (11.5-14.5); WHITE BLOOD COUNT 7.6 X10'3 (4.5-11.0)
[2024-09-22] MEDS: furosemide 40mg/4ml inj IV SCH (08:13)
[2024-09-22 08:17] LABS: ANION GAP 5 (8-16); BLOOD UREA NITROGEN 35 MG/DL (7-18); BUN/CREATININE RATIO 38.5 (10.0-20.0); CALCIUM 8.1 MG/DL (8.5-10.1); CHLORIDE 104 MMOL/L (99-107); CREATININE 0.91 MG/DL (0.60-1.10); GLUCOSE 132 MG/DL (70-104); MAGNESIUM 2.3 MG/DL (1.5-2.4); PHOSPHORUS 3.7 MG/DL (2.3-4.5); POTASSIUM 3.8 MMOL/L (3.5-5.1); SODIUM 141 MMOL/L (135-145); TOTAL CARBON DIOXIDE 32.5 MMOL/L (24-32); eCRCL 75 ML/MIN; eGFR 82 ML/MIN
[2024-09-22 09:35] LABS: PLATELET ESTIMATE NORMAL
[2024-09-22 09:36] LABS: ANISOCYTOSIS 3+; HYPOCHROMASIA 1+; POIKILOCYTOSIS 1+; POLYCHROMASIA FEW
[2024-09-22] MEDS: metoprolol tartrate 25mg tablet PO SCH (14:12)
[2024-09-22] MEDS: magnesium hydroxide 30ml (MOM) UD suspension PO ONE (21:07)
[2024-09-22] MEDS: docusate sod 100mg capsule PO PRN (21:08)
[2024-09-23] VITALS (10 sets, daily range): BP systolic 128–133; BP diastolic 57–71; PULSE 56–72; RESP 13–18; TEMP 97.6–98.2; O2SAT 70–96
[2024-09-23 07:21] LABS: BASOPHILS % (AUTO) 0 % (0-1); EOSINOPHILS % (AUTO) 0 % (0-6); HEMATOCRIT 28.3 % (42.0-52.0); HEMOGLOBIN 9.4 g/dl (14.0-17.9); LYMPHOCYTES # (AUTO) 0.4 X10'3 (1.1-4.8); LYMPHOCYTES % (AUTO) 7.6 % (21-51); MEAN CORPUSCULAR HGB CONC 33.1 g/dL (33.0-36.5); MEAN CORPUSCULAR VOLUME 81.6 FL (78-98); MEAN PLATELET VOLUME 8.7 FL (7.4-10.4); MONOCYTES # (AUTO) 0.2 X10'3 (0-0.9); MONOCYTES % (AUTO) 4.2 % (2-12); NEUTROPHILS # (AUTO) 4.7 X10'3 (1.8-7.7); NEUTROPHILS % (AUTO) 88.2 % (42-75); PLATELET COUNT 165 X10'3 (140-440); RED BLOOD COUNT 3.47 X10'6 (4.70-6.10); RED CELL DISTRIBUTION WIDTH 20.6 % (11.5-14.5); WHITE BLOOD COUNT 5.3 X10'3 (4.5-11.0)
[2024-09-23 08:05] LABS: ALBUMIN 2.9 G/DL (3.4-5.0); ANION GAP 6 (8-16); BLOOD UREA NITROGEN 39 MG/DL (7-18); BUN/CREATININE RATIO 41.1 (10.0-20.0); CALCIUM 7.9 MG/DL (8.5-10.1); CHLORIDE 104 MMOL/L (99-107); CREATININE 0.95 MG/DL (0.60-1.10); GLUCOSE 169 MG/DL (70-104); MAGNESIUM 2.7 MG/DL (1.5-2.4); PHOSPHORUS 3.3 MG/DL (2.3-4.5); POTASSIUM 3.9 MMOL/L (3.5-5.1); SODIUM 142 MMOL/L (135-145); TOTAL CARBON DIOXIDE 32.1 MMOL/L (24-32); eCRCL 72 ML/MIN; eGFR 78 ML/MIN
[2024-09-23] MEDS ORDERED: CEFD300C3 PO (09:16)
[2024-09-23] MEDS ORDERED: GUAI600T45 PO (09:16)
[2024-09-23] MEDS ORDERED: PRED10TA23 PO (09:16)
[2024-09-23] MEDS ORDERED: METO50TA16 PO (09:16)
== END 2024-09-23 14:18 | DRG 291 ==
LOC: ER 12:48 → ED HOLD 14:41 → PCU 3S 09-22 00:30
PROVIDERS: ADMIT Internal Medicine; ATTEND Internal Medicine
DX: I11.0 Hypertensive heart disease with heart failure (principal); I50.33 Acute on chronic diastolic (congestive) heart failure; J96.21 Acute and chronic respiratory failure with hypoxia; J44.1 Chronic obstructive pulmonary disease with (acute) exacerbation; Z20.822 Contact with and (suspected) exposure to COVID-19; F32.A Depression, unspecified; G89.29 Other chronic pain; Z79.01 Long term (current) use of anticoagulants; Z79.899 Other long term (current) drug therapy; Z86.711 Personal history of pulmonary embolism; Z85.820 Personal history of malignant melanoma of skin; Z85.46 Personal history of malignant neoplasm of prostate
CPT/HCPCS: 36415; 71045; 80048; 80305; 81001; 83605; 83735; 83880; 84100; 84145; 84484; 85008; 85025; 85610; 87040; 87081; 87502; 87503; 87811; 93005; 93306; 94640; 94760; 97110; 97116; 97162; 97530; 99285; A4615; A4620; A6212; A6222; G0378; J0696; J1940; J2919; J7030

== ENCOUNTER 2024-11-12 14:44 | Emergency (ER) | payer MEDICARE, MEDICAID ==
[~2024-11-12] VITALS: Ht 185.4 cm; Wt 86.4 kg
[~2024-11-12 14:44] MED LIST changes: -APIX5TAB3 PO; -AZI25OT PO; -CYCL-1 PO; -FER325T PO; -HYDR-3964 PO; -LISI10TA27 PO; +MIDO5TAB4 PO; +PANT-47 PO; -PANT40TA54 PO; -POLY17PO10 PO; +POTA8TAB69 PO; -PRED10TA23 PO; +RIVA20TA PO; -SPIR25TA5 PO
[2024-11-12 14:56] VITALS: TEMP 98.6
[2024-11-12 16:08] LABS: BASOPHILS % (AUTO) 0.2 % (0-1); EOSINOPHILS % (AUTO) 0.3 % (0-6); HEMATOCRIT 37.4 % (42.0-52.0); HEMOGLOBIN 11.7 g/dl (14.0-17.9); LYMPHOCYTES # (AUTO) 1.6 X10'3 (1.1-4.8); LYMPHOCYTES % (AUTO) 20.8 % (21-51); MEAN CORPUSCULAR HEMOGLOBIN 27.9 PG (27.0-31.0); MEAN CORPUSCULAR HGB CONC 31.2 g/dL (33.0-36.5); MEAN CORPUSCULAR VOLUME 89.5 FL (78-98); MEAN PLATELET VOLUME 7.9 FL (7.4-10.4); MONOCYTES # (AUTO) 0.6 X10'3 (0-0.9); MONOCYTES % (AUTO) 7.5 % (2-12); NEUTROPHILS # (AUTO) 5.3 X10'3 (1.8-7.7); NEUTROPHILS % (AUTO) 71.2 % (42-75); PLATELET COUNT 202 X10'3 (140-440); RED BLOOD COUNT 4.18 X10'6 (4.70-6.10); RED CELL DISTRIBUTION WIDTH 18.8 % (11.5-14.5); WHITE BLOOD COUNT 7.5 X10'3 (4.5-11.0)
[2024-11-12 16:37] LABS: ALANINE AMINOTRANSFERASE 18 U/L (12-78); ALBUMIN 3.5 G/DL (3.4-5.0); ALKALINE PHOSPHATASE 107 IU/L (46-116); ANION GAP 6 (8-16); ASPARTATE AMINO TRANSFERASE 16 U/L (10-37); BILIRUBIN,TOTAL 0.5 MG/DL (0.1-1.0); BLOOD UREA NITROGEN 21 MG/DL (7-18); CALCIUM 8.9 MG/DL (8.5-10.1); CHLORIDE 103 MMOL/L (99-107); GLUCOSE 75 MG/DL (70-104); POTASSIUM 3.7 MMOL/L (3.5-5.1); PRO BRAIN NATRIURETIC PEPTIDE 546 PG/ML (0-125); SODIUM 142 MMOL/L (135-145); TOTAL CARBON DIOXIDE 32.9 MMOL/L (24-32); eCRCL 74 ML/MIN; eGFR 73 ML/MIN
[2024-11-12] MEDS: furosemide 40mg/4ml inj IV ONE (16:37)
[2024-11-12] MEDS: methylPREDNISolone sod succ 125mg/2ml vial IV ONE (16:37)
[2024-11-12 16:50] VITALS: PULSE 55; RESP 17; O2SAT 98
[2024-11-12] MEDS: ipratropium/albuterol 3ml nebule NEB ONE (16:50)
[2024-11-12 16:56] VITALS: PULSE 52; RESP 17; O2SAT 99
[2024-11-12 17:20] LABS: PROTHROMBIN TIME 10.3 SECONDS (9.0-12.0)
[2024-11-12 17:25] LABS: APTT 21 SECONDS (22-32)
[2024-11-12] MEDS ORDERED: PRED50TA PO (17:35)
[2024-11-12 17:52] VITALS: BP 122/66; PULSE 53; RESP 18; O2SAT 97
== END 2024-11-12 18:32 | disposition home or self-care (01) ==
LOC: ER 14:44
DX: J44.1 Chronic obstructive pulmonary disease with (acute) exacerbation (principal); I50.9 Heart failure, unspecified; F32.A Depression, unspecified; G89.29 Other chronic pain; Z60.2 Problems related to living alone; Z79.52 Long term (current) use of systemic steroids; Z79.899 Other long term (current) drug therapy
CPT/HCPCS: 71045; 80053; 83880; 84484; 85025; 85610; 85730; 93005; 94640; 96374; 96375; 99285; J1940; J2919; 94760

== ENCOUNTER 2025-02-01 18:05 | Inpatient (IN) | payer MEDICARE, MEDICAID ==
[~2025-02-01] VITALS: Ht 185.4 cm; Wt 77.0 kg
[~2025-02-01 18:05] MED LIST changes: -ALBU2.5V7 NEB; -BUPR1FIL3 SL; -FLO0.4C PO; -MIDO5TAB4 PO; +PRED50TA PO; +TAMS-55 PO
--- NOTE | 2025-02-01 19:45 | Physician Documentation ---
History of Present Illness ~ Chief Complaint: Weakness Stated Complaint: WEAKNESS Time Seen by MD: 18:19 OK to notify your PCP?: Yes Primary Medical Doctor: SARITA DIAZ Mode of Arrival: POV HPI 74-year-old male history of chronic respiratory failure presenting for weakness. He reports steady decline over the last year and then worsened over the last 3 months with inability to breathe. Over the last 3 months he is unable to walk at all unassisted. Today he was discharged from [facility] and was unable to walk unassisted into his home. He was on walking with the assistance and still was unable to move his legs he felt profoundly short of breath, Medication Reconciliation Allergies: Coded Allergies: No Known Allergies (Unverified , 02/01/25) Scheduled Bisoprolol Fumarate (Bisoprolol Fumarate), 1 TAB PO DAILY, (Reported) Dapagliflozin Propanediol (Farxiga), 1 TAB PO DAILY, (Reported) Furosemide (Furosemide), 1 TAB PO DAILY, (Reported) Guaifenesin (Mucinex), 600 MG PO BID Midodrine HCl (Midodrine HCl), 1 TAB PO BID, (Reported) Oxycodone Hcl (Oxycodone Hcl), 1 TAB PO Q4H, (Reported) Pantoprazole Sodium (PROTONIX tablet), 1 TAB PO DAILY, (Reported) Potassium Chloride (Klor-Con 8), 1 TAB PO DAILY, (Reported) Prednisone (Prednisone), 2 TAB PO DAILY, (Reported) Rivaroxaban (Xarelto), 1 TAB PO DAILY, (Reported) Tamsulosin Hcl* (Flomax*), 1 TAB PO HS, (Reported) Scheduled PRN Albuterol Sulfate (Ventolin Hfa), 18 GM IH PRN PRN for SOB or wheezing, (Reported) Discontinued Medications Docusate Sodium (Docusate Sodium), 1 CAP PO BID PRN for constipation, (Reported) Discontinued Reason: Other Fluticasone/Umeclidin/Vilanter (Trelegy Ellipta 100-62.5-25), 1 PUFFS INH DAILY Discontinued Reason: Other Prednisone (Prednisone), 1 TAB PO DAILY Discontinued Reason: Other Past Medical History Past Medical History: Congestive Heart Failure, Myocardial Infarction, COPD, Chronic Pain, *CANCER*, *PSYCH*, Depression Past Surgical History: noncontributory Patient History: Bone cancer FATHER, MOTHER, FH: diabetes mellitus FAMILY/OTHER brother FH: melanoma MOTHER, Alcohol Use: None Drug Use: other Lives with: Alone Lives In: Home Review of Systems All Other Systems at this time: Reviewed and Negative Constitutional: Denies: fever Respiratory: Reports: cough, shortness of breath, SOB with exertion, SOB at rest Cardiovascular: Reports: chest pain Gastrointestinal: Denies: abdominal pain Physical Exam Vital Signs: Temperature: 98.9, Source: Oral, Heart Rate: 61, Respiratory Rate: 18, BP: 140/90, Pulse Oximetry: 97, Weight: 77.000 Oxygen Flow Rate: 0 Physical Exam Chronically ill Diffuse rhonchi Abdomen soft nontender Lower extremity no edema Progress Progress Note I had long discussion with the patient at bedside about his goals of care. He wants to be in control of his final time he has come to terms that he will never be independent again due to his chronic respiratory failure. His goals are to remain sober from alcohol and be comfortable. He would like to pursue hospice care Discussed with hospitalist who agrees with plan for admission Results/Orders Reviewed/noted all lab results: Yes Results/Orders Orders - CHARITO GONZALEZ MD Street Flusher Driver (02/01/25 20:12) Chest,Single View (02/01/25 ) Page Hospitalist (02/01/25 21:08) Fill Out Med Reconciliation (02/01/25 21:08) Completed Orders - CHARITO GONZALEZ MD Morphine 4mg/Ml Inj. (Morphine Inj.) (02/01/25 20:15) Ipratropium/Albuterol Nebule (Ipratrop/A (02/01/25 20:15) Cbc/Diff (02/01/25 20:13) BMP (02/01/25 20:13) PBNP (02/01/25 20:13) Chest,Single View (02/01/25 ) Albuterol 2.5mg/3ml Nebule (Proventil 2. (02/01/25 21:10) Medications Received in ER Medications (Trade) Dose Ordered Sig/Jaylan Route PRN Reason Start Time Stop Time Status Last Admin Dose Admin (morphine inj.) 4 mg ONCE ONCE IV 02/01/25 20:15 02/01/25 20:19 DC 02/01/25 21:50 4 MG (ipratrop/ albuterol 0.5-3(2.5) MG/3ml nebule) 3 ml ONCE ONCE NEB 02/01/25 20:15 02/01/25 20:19 DC 02/01/25 20:38 3 ML Vital Signs 02/01/25 02/01/25 02/01/25 02/01/25 18:09 19:34 19:36 20:40 Temp 98.9 Pulse 70 61 63 Resp 18 18 20 B/P (MAP) 141/75 140/90 (107) Pulse Ox 98 97 100 O2 Delivery Nasal Cannula* O2 Flow Rate 3.0 0 3 FiO2 32 02/01/25 20:51 Pulse 70 Resp 20 Pulse Ox 97 O2 Delivery Nasal Cannula* O2 Flow Rate 2 FiO2 28 Laboratory Tests Test 02/01/25 20:25 White Blood Count 7.8 Red Blood Count 3.36 L Hemoglobin 7.7 L Hematocrit 25.7 L Mean Corpuscular Volume 76.5 L Mean Corpuscular Hemoglobin 22.9 L Mean Corpuscular Hemoglobin Concent 29.9 L Red Cell Distribution Width 20.1 H Platelet Count 209 Mean Platelet Volume 7.5 Neutrophils (%) (Auto) 85.1 H Lymphocytes (%) (Auto) 11.2 L Monocytes (%) (Auto) 3.1 Eosinophils (%) (Auto) 0.1 Basophils (%) (Auto) 0.5 Neutrophils # (Auto) 6.7 Lymphocytes # (Auto) 0.9 L Monocytes # (Auto) 0.2 Eosinophils # (Auto) 0.0 Basophils # (Auto) 0.0 CBC Comment Sodium Level 143 Potassium Level 4.0 Chloride Level 104 Carbon Dioxide Level 32.3 H Anion Gap 7 L Blood Urea Nitrogen 27 H Creatinine 1.01 Estimated GFR/1.73 m2 72 BUN/Creatinine Ratio 26.7 H Glucose Level 101 Calcium Level 8.6 Pro-B-Type Natriuretic Peptide 330 H Albumin 3.4 Chemistry Comments EKG/XRAY/CT/US/VASC/MRI Chest X-Ray : Additional Comments Independent interpretation of chest x-ray shows no pneumothorax no consolidation normal cardiomediastinal silhouette Medical Decision Making Additional info obtained from: old records Findings Echocardiogram 09/2024 LV ismildly dilated with mild concentric hypertrophy. Overall systolic function appears normal. LVEF is 60%. RV appears mildly dilated with normal contractility. RVSP is estimated at 51 mmHG. Left atrium is moderately dilated. Trileaflet AV appears sclerotic without stenosis. No insufficiency. MV is thickened with mild annular calcification and no stenosis. Trace mitral regurgitation. The tricuspid valve is normal in structure. Trace to mild tricuspid regurgitation The pulmonary valve is normal in structure. Trace pulmonic regurgitation. There is no pericardial effusion. Discharge summary November 2024 syncope acute exacerbation of chronic HFpEF COPD, HFpEF, chronic respiratory failure on 2-3 L HRT chronic AFib prostate cancer chronic pain Additional Information CHF COPD CAD Departure Disposition: ADMITTED INPATIENT Admitted to Inpatient Unit: to hospitalist Impression: Primary Impression: Hypoxic respiratory failure Qualified Codes: J96.01 - Acute respiratory failure with hypoxia Referrals: NO PRIMARY CARE PROVIDER (PCP) Signature Scribe Signature: na Attestation: CHARITO Lewis MD Feb 01, 2025 19:45
[2025-02-01 20:33] LABS: BASOPHILS % (AUTO) 0.5 % (0-1); EOSINOPHILS % (AUTO) 0.1 % (0-6); HEMATOCRIT 25.7 % (42.0-52.0); HEMOGLOBIN 7.7 g/dl (14.0-17.9); LYMPHOCYTES # (AUTO) 0.9 X10'3 (1.1-4.8); LYMPHOCYTES % (AUTO) 11.2 % (21-51); MEAN CORPUSCULAR HEMOGLOBIN 22.9 PG (27.0-31.0); MEAN CORPUSCULAR HGB CONC 29.9 g/dL (33.0-36.5); MEAN CORPUSCULAR VOLUME 76.5 FL (78-98); MEAN PLATELET VOLUME 7.5 FL (7.4-10.4); MONOCYTES # (AUTO) 0.2 X10'3 (0-0.9); MONOCYTES % (AUTO) 3.1 % (2-12); NEUTROPHILS # (AUTO) 6.7 X10'3 (1.8-7.7); NEUTROPHILS % (AUTO) 85.1 % (42-75); PLATELET COUNT 209 X10'3 (140-440); RED BLOOD COUNT 3.36 X10'6 (4.70-6.10); RED CELL DISTRIBUTION WIDTH 20.1 % (11.5-14.5); WHITE BLOOD COUNT 7.8 X10'3 (4.5-11.0)
[2025-02-01] MEDS: ipratropium/albuterol 3ml nebule NEB ONE (20:38)
[2025-02-01 20:40] VITALS: PULSE 63; RESP 20; O2SAT 100
--- NOTE | 2025-02-01 20:43 | RADIOLOGY REPORT ---
CHEST RADIOGRAPH Indication: sob Technique: Single frontal view of the chest was obtained COMPARISON: DI CHEST,SINGLE VIEW on DOS: 11/30/24 FINDINGS: Lines and Tubes: None Lungs: There is lucency in the upper lobes consistent with emphysematous changes. No pulmonary infilt rates noted. No pulmonary edema. Pleura: No effusion. No pneumothorax. Cardiomediastinal contours: Unremarkable Bones: No acute abnormality noted. Prior ORIF of left clavicular fracture. IMPRESSION: No acute disease. Emphysema changes in the upper lobes. No appreciable change compared to the prior chest x-ray from 11/30/24.
[2025-02-01 20:51] VITALS: PULSE 70; RESP 20; O2SAT 97
[2025-02-01 20:58] LABS: ALBUMIN 3.4 G/DL (3.4-5.0); ANION GAP 7 (8-16); BLOOD UREA NITROGEN 27 MG/DL (7-18); BUN/CREATININE RATIO 26.7 (10.0-20.0); CALCIUM 8.6 MG/DL (8.5-10.1); CHLORIDE 104 MMOL/L (99-107); CREATININE 1.01 MG/DL (0.60-1.10); GLUCOSE 101 MG/DL (70-104); PRO BRAIN NATRIURETIC PEPTIDE 330 PG/ML (0-125); SODIUM 143 MMOL/L (135-145); TOTAL CARBON DIOXIDE 32.3 MMOL/L (24-32); eCRCL 71 ML/MIN; eGFR 72 ML/MIN
[2025-02-01] MEDS: morphine 4 MG/ML inj SYRINge IV ONE (21:50)
[2025-02-01] MEDS ORDERED: MIDO5TAB4 PO (22:26)
[2025-02-01] MEDS ORDERED: PRED10TA PO (22:26)
[2025-02-01] MEDS ORDERED: LORazepam 2 mg/ml vial IV PRN (23:15)
[2025-02-01] MEDS ORDERED: ondansetron/PF 4mg/2ml inj IV PRN (23:15)
[2025-02-01] MEDS ORDERED: acetaminophen 325mg tablet PO PRN (23:15)
[2025-02-01] MEDS ORDERED: albuterol 2.5 MG/3 ML nebule NEB PRN ×2 (23:35)
[2025-02-02] VITALS (16 sets, daily range): BP systolic 110–144; BP diastolic 48–73; PULSE 55–76; RESP 14–22; TEMP 97.7–98.6; O2SAT 94–99
--- NOTE | 2025-02-02 00:01 | HISTORY AND PHYSICAL-Residence ---
History & Physical Providers to CC Resident Creating Document: HOLLIS CHARLESVINAYLUKE FARR CC: KIRK FOFANA MD ~ History of Present Illness Primary Medical Doctor: SARITA DIAZ Reason for Admit\Complaint: Shortness of breath History of Present Illness Patient is a 74-year-old male with history of chronic hypoxic respiratory failure 2/2 COPD, prostate cancer, skin cancer, hypertension, CHF, chronic DVT and PE who was brought to the ED due to generalized weakness and altered level of consciousness. Patient reports that he has been experiencing increasing weakness and shortness of breath for the past several weeks, he was in rehab for awhile ([facility]) and recently discharged. He states that he was initially feeling better, and he decided to purchase a mobile home and move independently from his sister's, however, he is again experiencing increasing weakness, shortness of breath, fatigue, intermittent confusion and recurrent falls. Today, he was found on the floor by neighbors and brought to the hospital. He reports he is tired of feeling like this, and he wishes to not proceed with any further treatments other than comfort measures. He reports he already refused any further treatment for his prostate cancer as well. Allergies: Coded Allergies: No Known Allergies (Unverified , 02/01/25) Home Medications Home Medications Active Mucinex (Guaifenesin) 600 Mg Tablet.sa 600 Mg PO BID 7 Days Reported Prednisone (Prednisone) 10 Mg Tablet 2 Tab PO DAILY Midodrine HCl 5 Mg Tablet 1 Tab PO BID Klor-Con 8 (Potassium Chloride) 8 Meq Tablet.er 1 Tab PO DAILY PROTONIX tablet (Pantoprazole Sodium) 40 Mg Tablet.dr 1 Tab PO DAILY Xarelto (Rivaroxaban) 20 Mg Tablet 1 Tab PO DAILY Furosemide 40 Mg Tablet 1 Tab PO DAILY Farxiga (Dapagliflozin Propanediol) 10 Mg Tablet 1 Tab PO DAILY Oxycodone Hcl 10 Mg Tablet 1 Tab PO Q4H Bisoprolol Fumarate 5 Mg Tablet 1 Tab PO DAILY Flomax* (Tamsulosin HCl) 0.4 Mg Cap.sr.24h 1 Tab PO HS Ventolin Hfa (Albuterol Sulfate) 18 Gm Hfa.aer.ad 18 Gm IH PRN PRN Past Medical History Past Medical History Chronic hypoxic respiratory failure 2/2 COPD Prostate cancer Skin cancer Hypertension CHF Chronic DVT and PE Family History Family History: Bone cancer FATHER, MOTHER, FH: diabetes mellitus FAMILY/OTHER brother FH: melanoma MOTHER, Past Social History Smoking: Quit greater than 1 year (Smoked 1 pack a day for several years) Alcohol Use: Sober (Last drink 12 years ago) Drug Use: None, Other Lives with: Alone Lives In: Home ROS ROS All systems were reviewed except for pertinent positives mentioned in HPI Constitutional: Denies: fever Respiratory: Reports: cough, shortness of breath, SOB with exertion, SOB at rest Cardiovascular: Reports: chest pain Gastrointestinal: Denies: abdominal pain Musculoskeletal: Reports: muscle pain Exam Vitals: Vital Signs Date Time Temp Pulse Resp B/P (MAP) Pulse Ox O2 Delivery O2 Flow Rate FiO2 02/01/25 23:35 22 02/01/25 22:16 98.4 67 97 2.0 02/01/25 20:51 Nasal Cannula* 28 General: General: awake, alert oriented to place, time, and person HEENT: No pallor present, no icterus, moist mucous membranes Neck: No masses and tenderness Resp: Dyspneic. Bilateral basal crackles and scattered wheezes Heart: Regular Rate and rhythm, normal S1 and S2 without murmur, rub or gallop Abdomen: Soft and non tender no organomegaly, no guarding and rigidity, bowel sounds present Neuro: No focal weakness in the upper and lower limb muscles, power of the muscles 4/5 bilateral upper and lower muscles, knee reflex present bilaterally. Cranial nerves intact Extremities: No cyanosis,clubbing or edema Skin: Warm and Dry. Several bruises in upper and lower extremities Diagnostic Data Last Recorded Lab Results: 02/01/25202402/01/252024 Advance Care Planning Advanced Care plannin - 30 Minutes Additional Plan Patient is a 74-year-old male with history of chronic hypoxic respiratory failure 2/2 COPD, prostate cancer, skin cancer, hypertension, CHF, chronic DVT and PE who was brought to the ED due to generalized weakness and altered level of consciousness. Admitted for acute on chronic respiratory failure, COPD exacerbation, CHF exacerbation and generalized weakness. Acute on chronic hypoxic respiratory failure COPD exacerbation Acute on chronic HFpEF, EF 60% Generalized weakness Chronic DVT and PE Microcytic anemia Prostate cancer Hypertension Patient requested to receive palliative comfort measurements Patient also not pursuing further management for his prostate cancer He would like to receive breathing treatments and supplemental O2 as well as some home medications including xarelto, mucinex and tamsulosin He does not want to continue heart failure GDMT, including diuretics, beta blockers or SGLT2 Comfort/palliative measures in place He will need placement for hospice care [place] is his friend Jeronimo Diaz, . Please contact with updates in AM per patients request Code Status: Palliative/comfort care DVT prophylaxis: Xarelto Analgesia/sedation: Morphine Nutrition: Regular diet Prognosis: Guarded Disposition: Admit to surgical floor. Continue palliative measures. Patient will need hospice care placement Luke Dunne MD Internal Medicine Resident PGY-1 Tele medicine coverage Patient seen and evaluated using HIPPA complaint AV device with the resident Agree with plans as discussed Kirk Fofana Date of Service: Feb 01, 2025 Billing Provider: KIRK FOFANA MD, LEONARDO LUIS Feb 02, 2025 00:01 KIRK FOFANA MD Feb 02, 2025 02:35
[2025-02-02] MEDS: morphine 10mg/0.5ml (conc. morphine) oral syringe PO PRN (01:14)
[2025-02-02] MEDS: albuterol 2.5 MG/3 ML nebule NEB ONE (01:27)
[2025-02-02] MEDS: ipratropium/albuterol 3ml nebule NEB SCH (01:28)
[2025-02-02] MEDS: LORazepam 1 MG tablet PO PRN (02:53)
[2025-02-02] MEDS: docusate sod 100mg capsule PO SCH (08:52)
[2025-02-02] MEDS: pantoprazole 40mg Tablet.DR PO SCH (08:52)
[2025-02-02] MEDS: guaiFENesin ER 600mg tablet PO SCH (08:52)
[2025-02-02] MEDS: rivaroxaban 20mg tablet PO SCH (16:36)
--- NOTE | 2025-02-02 19:22 | PROGRESS NOTE- Residence ---
Progress Note - Resident Providers to CC Resident Creating Document: GENESIS GARDUNO RES ~ Antibiotic Timeout Antibiotic Ordered?: No Subjective Patient was seen and examined bedside, complained of mild anxiety and weakness. Objective Vital Signs Date Time Temp Pulse Resp B/P (MAP) Pulse Ox O2 Delivery O2 Flow Rate FiO2 02/02/25 15:01 18 02/02/25 11:21 60 Nasal Cannula 2.0 28 02/02/25 11:15 95 02/02/25 10:00 98.4 144/72 (96) Result Diagram: 02/01/25202402/01/252024 Awake , alert, and oriented x4, resting comfortably in the bed, in no acute distress HEENT: Atraumatic, normocephalic, EOMI, anicteric sclera ; pink conjunctiva Neck: Trachea midline. Supple, full range of motion, no JVD Cardiac: Regular rhythm, regular rate with no murmurs all over the precordium. Respiratory: Equal breath sounds bilaterally, no tachypnea, no wheezing ,rub or rales, Chest wall is symmetric and without deformity. Gastrointestinal: Abdomen symmetric, non-distended, soft, non-tender, normal bowel sounds x4 quadrant, normoactive, no hepatosplenomegaly Neurological: Speech is clear, alert, and oriented x 4. No motor or sensory deficit, deep tendon reflexes normal, cerebellar intact. Cranial nerves II-XII intact. Skin: Warm and dry Advance Care Planning Advanced Care plannin - 30 Minutes Assessment Assessment Patient is a 74-year-old male with history of chronic hypoxic respiratory failure 2/2 COPD, prostate cancer, skin cancer, hypertension, CHF, chronic DVT and PE who was brought to the ED due to generalized weakness and altered level of consciousness. Admitted for acute on chronic respiratory failure, COPD exacerbation, CHF exacerbation and generalized weakness. Plan Plan Acute on chronic hypoxic respiratory failure COPD exacerbation Acute on chronic HFpEF, EF 60% Generalized weakness Chronic DVT and PE Microcytic anemia Prostate cancer Hypertension Patient requested to receive palliative comfort measurements Patient also not pursuing further management for his prostate cancer He would like to receive breathing treatments and supplemental O2 as well as some home medications including xarelto, mucinex and tamsulosin He does not want to continue heart failure GDMT, including diuretics, beta blockers or SGLT2 Comfort/palliative measures in place He will need placement for hospice care POA is his friend Jeronimo Diaz, . Please contact with updates in AM per patients request 02/02/2025: Patient complained of mild anxiety and weakness. Initiated Pain management with [place] 10 as needed. Also initiated Klonopin 0.5 mg p.o. b.i.d.. Code Status: Palliative/comfort care DVT prophylaxis: Xarelto Analgesia/sedation: Nor Nutrition: Regular diet Prognosis: Guarded Disposition: Continue palliative measures. Genesis Garduno MD Internal Medicine Resident, PGY-1 Patient seen and examined with resident at bedside Date of Service: Feb 02, 2025 Billing Provider: HALEY RIVAS MD Common Visit Codes: [id number] INP/OBS CARE(HIGH) GENESIS GARDUNO, RES Feb 02, 2025 19:22 HALEY RIVAS MD Feb 03, 2025 13:09
[2025-02-02] MEDS: tamsulosin 0.4mg capsule PO SCH (20:47)
[2025-02-02] MEDS: cloNIDine 0.1 mg tablet PO SCH (20:52)
[2025-02-03] VITALS (17 sets, daily range): BP systolic 103–119; BP diastolic 47–66; PULSE 64–86; RESP 14–18; TEMP 97.7–98.1; O2SAT 92–98
--- NOTE | 2025-02-03 13:09 | PROGRESS NOTE ---
Daily Progress Note Providers to CC ~ Antibiotic Timeout Antibiotic Ordered?: No Subjective Chief complaint none patient is enjoying the nurses giving him a bed bath he states feels like a massage. He appears comfortable in no acute distress Review of systems negative for all 10 systems reviewed Objective Vital Signs Date Time Temp Pulse Resp B/P (MAP) Pulse Ox O2 Delivery O2 Flow Rate FiO2 02/03/25 12:12 75 18 Nasal Cannula 2.0 02/03/25 12:07 98 28 02/03/25 08:52 103/47 (65) 02/02/25 22:00 97.7 Result Diagram: 02/01/25202402/01/252024 Awake , alert, and oriented x4, resting comfortably in the bed, in no acute distress HEENT: Atraumatic, normocephalic, EOMI, anicteric sclera ; pink conjunctiva Neck: Trachea midline. Supple, full range of motion, no JVD Cardiac: Regular rhythm, regular rate with no murmurs all over the precordium. Respiratory: Equal breath sounds bilaterally, no tachypnea, no wheezing ,rub or rales, Chest wall is symmetric and without deformity. Gastrointestinal: Abdomen symmetric, non-distended, soft, non-tender, normal bowel sounds x4 quadrant, normoactive, no hepatosplenomegaly Neurological: Speech is clear, alert, and oriented x 4. No motor or sensory deficit, deep tendon reflexes normal, cerebellar intact. Cranial nerves II-XII intact. Skin: Warm and dry Problem\Assessment\Plan Acute on chronic hypoxic respiratory failure COPD exacerbation Acute on chronic HFpEF, EF 60% Generalized weakness Chronic DVT and PE Microcytic anemia Prostate cancer Hypertension Patient requested to receive palliative comfort measurements Patient also not pursuing further management for his prostate cancer He would like to receive breathing treatments and supplemental O2 as well as some home medications including xarelto, mucinex and tamsulosin He does not want to continue heart failure GDMT, including diuretics, beta blockers or SGLT2 Comfort/palliative measures in place He will need placement for hospice care POA is his friend Jeronimo Diaz, . Please contact with updates in AM per patients request 02/02/2025: Patient complained of mild anxiety and weakness. Initiated Pain management with [place] 10 as needed. Also initiated Klonopin 0.5 mg p.o. b.i.d.. Code Status: Palliative/comfort care DVT prophylaxis: Xarelto Analgesia/sedation: Nor Nutrition: Regular diet Prognosis: Guarded Disposition: Continue palliative measures. Case discussed in details with case specialist [place] no place available yet for discharge-placement pending patient is unable to be discharged home as he lives alone and unable to care for self Date of Service: Feb 03, 2025 Billing Provider: HALEY RIVAS MD Common Visit Codes: [id number] INP/OBS CARE(HIGH) HALEY RIVAS MD Feb 03, 2025 13:09
[2025-02-03] MEDS ORDERED: ondansetron 4mg rapidly disintigrating tab PO PRN (14:30)
[2025-02-03] MEDS: HYDROcodone/acetaminophen 10/325mg tab PO PRN (19:27)
[2025-02-04] VITALS (18 sets, daily range): BP systolic 112–123; BP diastolic 67–71; PULSE 56–99; RESP 15–20; TEMP 97.8–97.9; O2SAT 92–98
--- NOTE | 2025-02-04 13:05 | PROGRESS NOTE- Residence ---
Progress Note - Resident Providers to CC Resident Creating Document: VICENTE SMALLS RES ~ Antibiotic Timeout Antibiotic Ordered?: No Subjective Patient was seen and examined bedside, he reported he feels better today, no any complaint trying to work with physical therapy Objective Vital Signs Date Time Temp Pulse Resp B/P (MAP) Pulse Ox O2 Delivery O2 Flow Rate FiO2 02/04/25 11:29 16 02/04/25 11:27 82 Nasal Cannula 2.0 02/04/25 11:22 97 28 02/04/25 10:43 97.8 123/69 (87) Result Diagram: 02/01/25202402/01/252024 General: Awake and Alert, no acute distress. HEENT: Conjunctiva pink, Sclera clear, Mucus Membranes moist. PERRLA Neck: Supple without masses and tenderness. Resp: Coarse breath sounds bilaterally Heart: Regular Rate and rhythm, normal S1 and S2 without murmur, rub or gallop. Abdomen: Soft and non tender no organomegaly Extremities: No cyanosis,clubbing or edema. Skin: Warm and Dry. Neurological: Speech is clear, alert, and oriented x 4, no gross neurological deficits Strength of lower extremity 4/5, and upper extremity 4/5 Assessment Assessment Patient is a 74-year-old male with history of chronic hypoxic respiratory failure 2/2 COPD, prostate cancer, skin cancer, hypertension, CHF, chronic DVT and PE who was brought to the ED due to generalized weakness and altered level of consciousness. Admitted for acute on chronic respiratory failure, COPD exacerbation, CHF exacerbation and generalized weakness. Plan Plan Acute on chronic hypoxic respiratory failure COPD exacerbation Acute on chronic HFpEF, EF 60% Generalized weakness Chronic DVT and PE Microcytic anemia Prostate cancer Hypertension Patient requested to receive palliative comfort measurements Patient also not pursuing further management for his prostate cancer He would like to receive breathing treatments and supplemental O2 as well as some home medications including xarelto, mucinex and tamsulosin He does not want to continue heart failure GDMT, including diuretics, beta blockers or SGLT2 Comfort/palliative measures in place He need placement for hospice care POA is his friend Jeronimo Diaz, [phone]. 02/02/2025: Patient complained of mild anxiety and weakness. Initiated Pain management with [place] 10 as needed. Also initiated Klonopin 0.5 mg p.o. b.i.d.. Code Status: Palliative/comfort care DVT prophylaxis: Xarelto Analgesia/sedation: Nor Nutrition: Regular diet Prognosis: Guarded Disposition: Continue palliative measures, patient lives at home alone and need placement for palliative care, case loader operator [place] informed Vicente Smalls MD Internal Medicine Resident, Date of Service: Feb 04, 2025 Billing Provider: BENITO HARTMANN MD, [place], RES Feb 04, 2025 13:05
[2025-02-05] VITALS (13 sets, daily range): BP systolic 104–112; BP diastolic 58–64; PULSE 60–115; RESP 15–21; TEMP 97.5–98.3; O2SAT 85–98
--- NOTE | 2025-02-05 18:49 | PROGRESS NOTE- Residence ---
Progress Note - Resident Providers to CC Resident Creating Document: GENESIS GARDUNO RES ~ Antibiotic Timeout Antibiotic Ordered?: No Subjective Patient was seen and examined bedside, he currently on 6 L of oxygen. Patient wants to be placed at a rehab center with the hospice care. Objective Vital Signs Date Time Temp Pulse Resp B/P (MAP) Pulse Ox O2 Delivery O2 Flow Rate FiO2 02/05/25 17:41 16 02/05/25 15:39 63 Nasal Cannula 2.0 02/05/25 15:31 98 28 02/05/25 10:00 97.5 104/58 (73) Result Diagram: 02/01/25202402/01/252024 Awake , alert, and oriented x4, in respiratory distress HEENT: Atraumatic, normocephalic, EOMI, anicteric sclera ; pink conjunctiva Neck: Trachea midline. Supple, full range of motion, no JVD Cardiac: Regular rhythm, regular rate with no murmurs all over the precordium. Respiratory: Equal breath sounds bilaterally, no tachypnea, no wheezing ,rub or rales, Chest wall is symmetric and without deformity. Gastrointestinal: Abdomen symmetric, non-distended, soft, non-tender, normal bowel sounds x4 quadrant, normoactive, no hepatosplenomegaly Neurological: Speech is clear, alert, and oriented x 4. No motor or sensory deficit, deep tendon reflexes normal, cerebellar intact. Cranial nerves II-XII intact. Skin: Warm and dry Advance Care Planning Advanced Care plannin - 30 Minutes Assessment Assessment Patient is a 74-year-old male with history of chronic hypoxic respiratory failure 2/2 COPD, prostate cancer, skin cancer, hypertension, CHF, chronic DVT and PE who was brought to the ED due to generalized weakness and altered level of consciousness. Admitted for acute on chronic respiratory failure, COPD exacerbation, CHF exacerbation and generalized weakness. Plan Plan Acute on chronic hypoxic respiratory failure COPD exacerbation Acute on chronic HFpEF, EF 60% Generalized weakness Chronic DVT and PE Microcytic anemia Prostate cancer Hypertension Patient requested to receive palliative comfort measurements Patient also not pursuing further management for his prostate cancer He would like to receive breathing treatments and supplemental O2 as well as some home medications including xarelto, mucinex and tamsulosin He does not want to continue heart failure GDMT, including diuretics, beta blockers or SGLT2 Comfort/palliative measures in place He need placement for hospice care DENISE is his friend Jeronimo Diaz, [phone]. 02/02/2025: Patient complained of mild anxiety and weakness. Initiated Pain management with [place] 10 as needed. Also initiated Klonopin 0.5 mg p.o. b.i.d.. 02/09/2025: Patient is currently requiring 6 L of oxygen maintaining SpO2 of 92%. He wants to be placed at a rehab center with hospice care. Code Status was changed to DNR with comfort care Code Status: DNR with comfort care Disposition: Pending placement Genesis Garduno MD Internal Medicine Resident, PGY-1 Date of Service: Feb 05, 2025 Billing Provider: BENITO HARTMANN MD,GENESIS, RES Feb 05, 2025 18:49
[2025-02-06] VITALS (17 sets, daily range): BP systolic 111–125; BP diastolic 62–73; PULSE 74–91; RESP 16–19; TEMP 97.7–97.9; O2SAT 93–100
--- NOTE | 2025-02-06 17:08 | PROGRESS NOTE- Residence ---
Progress Note - Resident Providers to CC Resident Creating Document: GENESIS GARDUNO RES ~ Antibiotic Timeout Antibiotic Ordered?: No Subjective Patient was seen and examined bedside, he currently on 2 L of oxygen. Awaiting placement at rehab center with hospice care. Objective Vital Signs Date Time Temp Pulse Resp B/P (MAP) Pulse Ox O2 Delivery O2 Flow Rate FiO2 02/06/25 16:49 15 02/06/25 15:27 89 Nasal Cannula 2.0 02/06/25 15:16 93 28 02/06/25 10:00 97.8 123/62 (82) Awake , alert, and oriented x4, in respiratory distress HEENT: Atraumatic, normocephalic, EOMI, anicteric sclera ; pink conjunctiva Neck: Trachea midline. Supple, full range of motion, no JVD Cardiac: Regular rhythm, regular rate with no murmurs all over the precordium. Respiratory: Equal breath sounds bilaterally, no tachypnea, no wheezing ,rub or rales, Chest wall is symmetric and without deformity. Gastrointestinal: Abdomen symmetric, non-distended, soft, non-tender, normal bowel sounds x4 quadrant, normoactive, no hepatosplenomegaly Neurological: Speech is clear, alert, and oriented x 4. No motor or sensory deficit, deep tendon reflexes normal, cerebellar intact. Cranial nerves II-XII intact. Skin: Warm and dry Advance Care Planning Advanced Care plannin - 30 Minutes Assessment Assessment Patient is a 74-year-old male with history of chronic hypoxic respiratory failure 2/2 COPD, prostate cancer, skin cancer, hypertension, CHF, chronic DVT and PE who was brought to the ED due to generalized weakness and altered level of consciousness. Admitted for acute on chronic respiratory failure, COPD exacerbation, CHF exacerbation and generalized weakness. Plan Plan Acute on chronic hypoxic respiratory failure COPD exacerbation Acute on chronic HFpEF, EF 60% Generalized weakness Chronic DVT and PE Microcytic anemia Prostate cancer Hypertension Patient requested to receive palliative comfort measurements Patient also not pursuing further management for his prostate cancer He would like to receive breathing treatments and supplemental O2 as well as some home medications including xarelto, mucinex and tamsulosin He does not want to continue heart failure GDMT, including diuretics, beta blockers or SGLT2 Comfort/palliative measures in place He need placement for hospice care POA is his friend Jeronimo Emily, [phone]. 02/02/2025: Patient complained of mild anxiety and weakness. Initiated Pain management with [place] 10 as needed. Also initiated Klonopin 0.5 mg p.o. b.i.d.. 02/09/2025: Patient is currently requiring 6 L of oxygen maintaining SpO2 of 92%. He wants to be placed at a rehab center with hospice care. Code Status was changed to DNR with comfort care 02/06/2025: Requiring 2 L of oxygen today, Spo2 94%. Code Status: DNR with comfort care Disposition: Pending placement Genesis Garduno MD Internal Medicine Resident, PGY-1 Date of Service: Feb 06, 2025 Billing Provider: BENITO HARTMANN MD,GENESIS, RES Feb 06, 2025 17:08
[2025-02-06] MEDS: magnesium hydroxide 30ml (MOM) UD suspension PO ONE (20:09)
[2025-02-07] VITALS (17 sets, daily range): BP systolic 105–124; BP diastolic 60–70; PULSE 57–79; RESP 13–22; TEMP 97.4–98; O2SAT 94–98
--- NOTE | 2025-02-07 13:12 | PROGRESS NOTE- Residence ---
Progress Note - Resident Providers to CC Resident Creating Document: GENESIS GARDUNO RES ~ Antibiotic Timeout Antibiotic Ordered?: No Subjective Patient was seen and examined bedside, he currently on 2 L of oxygen. Awaiting placement at rehab center with hospice care. Objective Vital Signs Date Time Temp Pulse Resp B/P (MAP) Pulse Ox O2 Delivery O2 Flow Rate FiO2 02/07/25 10:54 14 02/07/25 10:46 76 Nasal Cannula 2.0 02/07/25 10:38 98 28 02/07/25 10:00 97.6 105/62 (76) Awake , alert, and oriented x4, in respiratory distress HEENT: Atraumatic, normocephalic, EOMI, anicteric sclera ; pink conjunctiva Neck: Trachea midline. Supple, full range of motion, no JVD Cardiac: Regular rhythm, regular rate with no murmurs all over the precordium. Respiratory: Equal breath sounds bilaterally, no tachypnea, no wheezing ,rub or rales, Chest wall is symmetric and without deformity. Gastrointestinal: Abdomen symmetric, non-distended, soft, non-tender, normal bowel sounds x4 quadrant, normoactive, no hepatosplenomegaly Neurological: Speech is clear, alert, and oriented x 4. No motor or sensory deficit, deep tendon reflexes normal, cerebellar intact. Cranial nerves II-XII intact. Skin: Warm and dry Advance Care Planning Advanced Care plannin - 30 Minutes Assessment Assessment Patient is a 74-year-old male with history of chronic hypoxic respiratory failure 2/2 COPD, prostate cancer, skin cancer, hypertension, CHF, chronic DVT and PE who was brought to the ED due to generalized weakness and altered level of consciousness. Admitted for acute on chronic respiratory failure, COPD exacerbation, CHF exacerbation and generalized weakness. Plan Plan Acute on chronic hypoxic respiratory failure COPD exacerbation Acute on chronic HFpEF, EF 60% Generalized weakness Chronic DVT and PE Microcytic anemia Prostate cancer Hypertension Patient requested to receive palliative comfort measurements Patient also not pursuing further management for his prostate cancer He would like to receive breathing treatments and supplemental O2 as well as some home medications including xarelto, mucinex and tamsulosin He does not want to continue heart failure GDMT, including diuretics, beta blockers or SGLT2 Comfort/palliative measures in place He need placement for hospice care POA is his friend Jeronimo Emily, [phone]. 02/02/2025: Patient complained of mild anxiety and weakness. Initiated Pain management with [place] 10 as needed. Also initiated Klonopin 0.5 mg p.o. b.i.d.. 02/09/2025: Patient is currently requiring 6 L of oxygen maintaining SpO2 of 92%. He wants to be placed at a rehab center with hospice care. Code Status was changed to DNR with comfort care 02/06/2025: Requiring 2 L of oxygen today, Spo2 94%. 02/07/25: Patient is still on 2 L of oxygen, maintaining SpO2 of 94% Code Status: DNR with comfort care Disposition: Pending placement Genesis Garduno MD Internal Medicine Resident, PGY-1 Date of Service: Feb 07, 2025 Billing Provider: BENITO HARTMANN MD,GENESIS, RES Feb 07, 2025 13:12
[2025-02-08] VITALS (15 sets, daily range): BP systolic 118–127; BP diastolic 56–59; PULSE 59–90; RESP 16–18; TEMP 97.8–98; O2SAT 93–98
[2025-02-08] MEDS: furosemide 40mg tablet PO ONE (16:05)
--- NOTE | 2025-02-08 17:07 | PROGRESS NOTE- Residence ---
Progress Note - Resident Providers to CC Resident Creating Document: GENESIS GARDUNO RES ~ Antibiotic Timeout Antibiotic Ordered?: No Subjective Patient was seen and examined bedside, he is currently on 2 L of oxygen. Awaiting placement at rehab center with hospice care. Objective Vital Signs Date Time Temp Pulse Resp B/P (MAP) Pulse Ox O2 Delivery O2 Flow Rate FiO2 02/08/25 16:59 16 02/08/25 16:30 59 Nasal Cannula 2.0 02/08/25 16:23 98 28 02/08/25 10:00 97.8 118/59 (78) Awake , alert, and oriented x4, in respiratory distress HEENT: Atraumatic, normocephalic, EOMI, anicteric sclera ; pink conjunctiva Neck: Trachea midline. Supple, full range of motion, no JVD Cardiac: Regular rhythm, regular rate with no murmurs all over the precordium. Respiratory: Equal breath sounds bilaterally, no tachypnea, no wheezing ,rub or rales, Chest wall is symmetric and without deformity. Gastrointestinal: Abdomen symmetric, non-distended, soft, non-tender, normal bowel sounds x4 quadrant, normoactive, no hepatosplenomegaly Neurological: Speech is clear, alert, and oriented x 4. No motor or sensory deficit, deep tendon reflexes normal, cerebellar intact. Cranial nerves II-XII intact. Skin: Warm and dry Advance Care Planning Advanced Care plannin - 30 Minutes Assessment Assessment Patient is a 74-year-old male with history of chronic hypoxic respiratory failure 2/2 COPD, prostate cancer, skin cancer, hypertension, CHF, chronic DVT and PE who was brought to the ED due to generalized weakness and altered level of consciousness. Admitted for acute on chronic respiratory failure, COPD exacerbation, CHF exacerbation and generalized weakness. Plan Plan Acute on chronic hypoxic respiratory failure COPD exacerbation Acute on chronic HFpEF, EF 60% Generalized weakness Chronic DVT and PE Microcytic anemia Prostate cancer Hypertension Patient requested to receive palliative comfort measurements Patient also not pursuing further management for his prostate cancer He would like to receive breathing treatments and supplemental O2 as well as some home medications including xarelto, mucinex and tamsulosin He does not want to continue heart failure GDMT, including diuretics, beta blockers or SGLT2 Comfort/palliative measures in place He need placement for hospice care POA is his friend Jeronimo Diaz, [phone]. 02/02/2025: Patient complained of mild anxiety and weakness. Initiated Pain management with [place] 10 as needed. Also initiated Klonopin 0.5 mg p.o. b.i.d.. 02/09/2025: Patient is currently requiring 6 L of oxygen maintaining SpO2 of 92%. He wants to be placed at a rehab center with hospice care. Code Status was changed to DNR with comfort care 02/06/2025: Requiring 2 L of oxygen today, Spo2 94%. 02/07/25: Patient is still on 2 L of oxygen, maintaining SpO2 of 94% 02/08/25: Patient is on 2 L of oxygen as above, pending placement Code Status: DNR with comfort care Disposition: Pending placement Genesis Garduno MD Internal Medicine Resident, PGY-1 Date of Service: Feb 08, 2025 Billing Provider: BENITO HARTMANN MD, GAURAV, RES Feb 08, 2025 17:07
[2025-02-09] VITALS (13 sets, daily range): BP systolic 105–125; BP diastolic 57–62; PULSE 69–117; RESP 14–18; TEMP 97.4–97.8; O2SAT 94–97
--- NOTE | 2025-02-09 12:45 | PROGRESS NOTE- Residence ---
Progress Note - Resident Providers to CC Resident Creating Document: GENESIS GARDUNO RES ~ Antibiotic Timeout Antibiotic Ordered?: No Subjective Patient was seen and examined bedside, he is currently on 3 L of oxygen. Awaiting placement at rehab center with hospice care. Objective Vital Signs Date Time Temp Pulse Resp B/P (MAP) Pulse Ox O2 Delivery O2 Flow Rate FiO2 02/09/25 12:08 88 16 Nasal Cannula 3.0 02/09/25 12:02 94 32 02/09/25 10:00 97.4 125/62 (83) Awake , alert, and oriented x4, in respiratory distress HEENT: Atraumatic, normocephalic, EOMI, anicteric sclera ; pink conjunctiva Neck: Trachea midline. Supple, full range of motion, no JVD Cardiac: Regular rhythm, regular rate with no murmurs all over the precordium. Respiratory: Equal breath sounds bilaterally, no tachypnea, no wheezing ,rub or rales, Chest wall is symmetric and without deformity. Gastrointestinal: Abdomen symmetric, non-distended, soft, non-tender, normal bowel sounds x4 quadrant, normoactive, no hepatosplenomegaly Neurological: Speech is clear, alert, and oriented x 4. No motor or sensory deficit, deep tendon reflexes normal, cerebellar intact. Cranial nerves II-XII intact. Skin: Warm and dry Advance Care Planning Advanced Care plannin - 30 Minutes Assessment Assessment Patient is a 74-year-old male with history of chronic hypoxic respiratory failure 2/2 COPD, prostate cancer, skin cancer, hypertension, CHF, chronic DVT and PE who was brought to the ED due to generalized weakness and altered level of consciousness. Admitted for acute on chronic respiratory failure, COPD exacerbation, CHF exacerbation and generalized weakness. Plan Plan Acute on chronic hypoxic respiratory failure COPD exacerbation Acute on chronic HFpEF, EF 60% Generalized weakness Chronic DVT and PE Microcytic anemia Prostate cancer Hypertension Patient requested to receive palliative comfort measurements Patient also not pursuing further management for his prostate cancer He would like to receive breathing treatments and supplemental O2 as well as some home medications including xarelto, mucinex and tamsulosin He does not want to continue heart failure GDMT, including diuretics, beta blockers or SGLT2 Comfort/palliative measures in place He need placement for hospice care POA is his friend Jeronimo Diaz, [phone]. 02/02/2025: Patient complained of mild anxiety and weakness. Initiated Pain management with [place] 10 as needed. Also initiated Klonopin 0.5 mg p.o. b.i.d.. 02/09/2025: Patient is currently requiring 6 L of oxygen maintaining SpO2 of 92%. He wants to be placed at a rehab center with hospice care. Code Status was changed to DNR with comfort care 02/06/2025: Requiring 2 L of oxygen today, Spo2 94%. 02/07/25: Patient is still on 2 L of oxygen, maintaining SpO2 of 94% 02/08/25: Patient is on 2 L of oxygen as above, pending placement 02/09/2025: Patient had an episode of shortness of breaths, oxygen requirement trended up to 3 L, tachycardic, however he had no other episodes later. Code Status: DNR with comfort care Disposition: Pending placement Genesis Garduno MD Internal Medicine Resident, PGY-1 Date of Service: Feb 09, 2025 Billing Provider: BENITO HARTMANN MD, GAURAV, RES Feb 09, 2025 12:45
[2025-02-10] VITALS (14 sets, daily range): BP systolic 135; BP diastolic 70; PULSE 71–89; RESP 16–18; TEMP 98; O2SAT 91–98
--- NOTE | 2025-02-10 14:09 | PROGRESS NOTE- Residence ---
Progress Note - Resident Providers to CC Resident Creating Document: GENESIS GARDUNO RES ~ Antibiotic Timeout Antibiotic Ordered?: No Subjective Patient was seen and examined bedside, he is currently on 2 L of oxygen. Awaiting placement at rehab center with hospice care. Objective Vital Signs Date Time Temp Pulse Resp B/P (MAP) Pulse Ox O2 Delivery O2 Flow Rate FiO2 02/10/25 12:59 74 18 Nasal Cannula 2.0 02/10/25 12:51 96 28 02/10/25 08:08 98.0 135/70 (91) Awake , alert, and oriented x4, in respiratory distress HEENT: Atraumatic, normocephalic, EOMI, anicteric sclera ; pink conjunctiva Neck: Trachea midline. Supple, full range of motion, no JVD Cardiac: Regular rhythm, regular rate with no murmurs all over the precordium. Respiratory: Equal breath sounds bilaterally, no tachypnea, no wheezing ,rub or rales, Chest wall is symmetric and without deformity. Gastrointestinal: Abdomen symmetric, non-distended, soft, non-tender, normal bowel sounds x4 quadrant, normoactive, no hepatosplenomegaly Neurological: Speech is clear, alert, and oriented x 4. No motor or sensory deficit, deep tendon reflexes normal, cerebellar intact. Cranial nerves II-XII intact. Skin: Warm and dry Advance Care Planning Advanced Care plannin - 30 Minutes Assessment Assessment Patient is a 74-year-old male with history of chronic hypoxic respiratory failure 2/2 COPD, prostate cancer, skin cancer, hypertension, CHF, chronic DVT and PE who was brought to the ED due to generalized weakness and altered level of consciousness. Admitted for acute on chronic respiratory failure, COPD exacerbation, CHF exacerbation and generalized weakness. Plan Plan Acute on chronic hypoxic respiratory failure COPD exacerbation Acute on chronic HFpEF, EF 60% Generalized weakness Chronic DVT and PE Microcytic anemia Prostate cancer Hypertension Patient requested to receive palliative comfort measurements Patient also not pursuing further management for his prostate cancer He would like to receive breathing treatments and supplemental O2 as well as some home medications including xarelto, mucinex and tamsulosin He does not want to continue heart failure GDMT, including diuretics, beta blockers or SGLT2 Comfort/palliative measures in place He need placement for hospice care POA is his friend Jeronimo Diaz, [phone]. 02/02/2025: Patient complained of mild anxiety and weakness. Initiated Pain management with [place] 10 as needed. Also initiated Klonopin 0.5 mg p.o. b.i.d.. 02/09/2025: Patient is currently requiring 6 L of oxygen maintaining SpO2 of 92%. He wants to be placed at a rehab center with hospice care. Code Status was changed to DNR with comfort care 02/06/2025: Requiring 2 L of oxygen today, Spo2 94%. 02/07/25: Patient is still on 2 L of oxygen, maintaining SpO2 of 94% 02/08/25: Patient is on 2 L of oxygen as above, pending placement 02/09/2025: Patient had an episode of shortness of breaths, oxygen requirement trended up to 3 L, tachycardic, however he had no other episodes later. 02/10/2025: Patient is still on 2 L of oxygen, maintaining SpO2 of 93%. He is receiving breathing treatment DuoNebs q.4h scheduled. He has wheezing on examination, which has been chronic. Code Status: DNR with comfort care Disposition: Pending placement, spoke to case briefer Kerry, awaiting response from rehabilitation centers Genesis Garduno MD Internal Medicine Resident, PGY-1 Date of Service: Feb 10, 2025 Billing Provider: BENITO HARTMANN MD,GENESIS, RES Feb 10, 2025 14:09
[2025-02-11] VITALS (16 sets, daily range): BP systolic 102–137; BP diastolic 65–72; PULSE 65–83; RESP 14–20; TEMP 97.1; O2SAT 95–99
--- NOTE | 2025-02-11 12:59 | PROGRESS NOTE- Residence ---
Progress Note - Resident Providers to CC Resident Creating Document: VICENTE SMALLS RES ~ Antibiotic Timeout Antibiotic Ordered?: No Subjective Patient was seen and examined bedside, he is currently on 2 L of oxygen. Awaiting placement at rehab center with hospice care. Objective Vital Signs Date Time Temp Pulse Resp B/P (MAP) Pulse Ox O2 Delivery O2 Flow Rate FiO2 02/11/25 11:19 83 18 Nasal Cannula 2.0 02/11/25 11:11 99 28 02/11/25 06:55 97.1 102/65 (77) General: Awake and Alert, no acute distress. HEENT: Conjunctiva pink, Sclera clear, Mucus Membranes moist. PERRLA Neck: Supple without masses and tenderness. Resp: Coarse breath sounds bilaterally Heart: Regular Rate and rhythm, normal S1 and S2 without murmur, rub or gallop. Abdomen: Soft and non tender no organomegaly Extremities: No cyanosis,clubbing or edema. Right upper extremity a little bit swollen Skin: Warm and Dry. Neurological: Speech is clear, alert, and oriented x 4, no gross neurological de ficits Strength of lower extremity 4/5, and upper extremity 4/5 Assessment Assessment Patient is a 74-year-old male with history of chronic hypoxic respiratory failure 2/2 COPD, prostate cancer, skin cancer, hypertension, CHF, chronic DVT and PE who was brought to the ED due to generalized weakness and altered level of consciousness. Admitted for acute on chronic respiratory failure, COPD exacerbation, CHF exacerbation and generalized weakness. Plan Plan Acute on chronic hypoxic respiratory failure COPD exacerbation Acute on chronic HFpEF, EF 60% Generalized weakness Chronic DVT and PE Microcytic anemia Prostate cancer Hypertension Patient requested to receive palliative comfort measurements Patient also not pursuing further management for his prostate cancer He would like to receive breathing treatments and supplemental O2 as well as some home medications including xarelto, mucinex and tamsulosin He does not want to continue heart failure GDMT, including diuretics, beta blockers or SGLT2 Comfort/palliative measures in place He need placement for hospice care [place] is his friend Jeronimo Diaz, [phone]. 02/02/2025: Patient complained of mild anxiety and weakness. Initiated Pain management with [place] 10 as needed. Also initiated Klonopin 0.5 mg p.o. b.i.d.. 02/09/2025: Patient is currently requiring 6 L of oxygen maintaining SpO2 of 92%. He wants to be placed at a rehab center with hospice care. Code Status was changed to DNR with comfort care 02/06/2025: Requiring 2 L of oxygen today, Spo2 94%. 02/07/25: Patient is still on 2 L of oxygen, maintaining SpO2 of 94% 02/08/25: Patient is on 2 L of oxygen as above, pending placement 02/09/2025: Patient had an episode of shortness of breaths, oxygen requirement trended up to 3 L, tachycardic, however he had no other episodes later. 02/10/2025: Patient is still on 2 L of oxygen, maintaining SpO2 of 93%. He is receiving breathing treatment DuoNebs q.4h scheduled. He has wheezing on examination, which has been chronic. 02/11/25 continue monitoring no changes Code Status: DNR with comfort care Disposition: Pending placement, spoke to case management coordinator Kerry, awaiting response from rehabilitation centers Vicente Smalls MD Internal Medicine Resident Date of Service: Feb 11, 2025 Billing Provider: BENITO HARTMANN MD,VICENTE, RES Feb 11, 2025 12:59
[2025-02-12] VITALS (15 sets, daily range): BP systolic 114–124; BP diastolic 58–66; PULSE 59–80; RESP 16–20; TEMP 97.1–98; O2SAT 94–99
--- NOTE | 2025-02-12 13:16 | PROGRESS NOTE- Residence ---
Progress Note - Resident Providers to CC Resident Creating Document: GENESIS GARDUNO, ANA ~ Antibiotic Timeout Antibiotic Ordered?: No Subjective Patient was seen and examined bedside, he is currently on 2 L of oxygen. Awaiting placement at rehab center with hospice care. Objective Vital Signs Date Time Temp Pulse Resp B/P (MAP) Pulse Ox O2 Delivery O2 Flow Rate FiO2 02/12/25 13:10 65 16 Nasal Cannula 2.0 02/12/25 13:01 95 28 02/11/25 19:07 137/72 (93) 02/11/25 18:00 97.1 Awake , alert, and oriented x4, in respiratory distress HEENT: Atraumatic, normocephalic, EOMI, anicteric sclera ; pink conjunctiva Neck: Trachea midline. Supple, full range of motion, no JVD Cardiac: Regular rhythm, regular rate with no murmurs all over the precordium. Respiratory: Equal breath sounds bilaterally, no tachypnea, no wheezing ,rub or rales, Chest wall is symmetric and without deformity. Gastrointestinal: Abdomen symmetric, non-distended, soft, non-tender, normal bowel sounds x4 quadrant, normoactive, no hepatosplenomegaly Neurological: Speech is clear, alert, and oriented x 4. No motor or sensory deficit, deep tendon reflexes normal, cerebellar intact. Cranial nerves II-XII intact. Skin: Warm and dry Advance Care Planning Advanced Care plannin - 30 Minutes Assessment Assessment Patient is a 74-year-old male with history of chronic hypoxic respiratory failure 2/2 COPD, prostate cancer, skin cancer, hypertension, CHF, chronic DVT and PE who was brought to the ED due to generalized weakness and altered level of consciousness. Admitted for acute on chronic respiratory failure, COPD exacerbation, CHF exacerbation and generalized weakness. Plan Plan Acute on chronic hypoxic respiratory failure COPD exacerbation Acute on chronic HFpEF, EF 60% Generalized weakness Chronic DVT and PE Microcytic anemia Prostate cancer Hypertension Patient requested to receive palliative comfort measurements Patient also not pursuing further management for his prostate cancer He would like to receive breathing treatments and supplemental O2 as well as some home medications including xarelto, mucinex and tamsulosin He does not want to continue heart failure GDMT, including diuretics, beta blockers or SGLT2 Comfort/palliative measures in place He need placement for hospice care POA is his friend Jeronimo Diaz, [phone]. 02/02/2025: Patient complained of mild anxiety and weakness. Initiated Pain management with [place] [facility] as needed. Also initiated Klonopin 0.5 mg p.o. b.i.d.. 02/09/2025: Patient is currently requiring 6 L of oxygen maintaining SpO2 of 92%. He wants to be placed at a rehab center with hospice care. Code Status was changed to DNR with comfort care 02/06/2025: Requiring 2 L of oxygen today, Spo2 94%. 02/07/25: Patient is still on 2 L of oxygen, maintaining SpO2 of 94% 02/08/25: Patient is on 2 L of oxygen as above, pending placement 02/09/2025: Patient had an episode of shortness of breaths, oxygen requirement trended up to 3 L, tachycardic, however he had no other episodes later. 02/10/2025: Patient is still on 2 L of oxygen, maintaining SpO2 of 93%. He is receiving breathing treatment DuoNebs q.4h scheduled. He has wheezing on examination, which has been chronic. 02/11/25 continue monitoring no changes 02/12/2025: Continue monitoring, no changes, awaiting replacement Code Status: DNR with comfort care Disposition: Pending placement, spoke to supportive employment case manager Kerry, awaiting response from rehabilitation centers Genesis Garduno MD Internal Medicine Resident, PGY-1 Date of Service: Feb 12, 2025 Billing Provider: BENITO HARTMANN MD,GENESIS, RES Feb 12, 2025 13:16
[2025-02-13] VITALS (9 sets, daily range): BP systolic 108; BP diastolic 71; PULSE 63–68; RESP 14–18; TEMP 97.5; O2SAT 95–99
--- NOTE | 2025-02-13 08:03 | DISCHARGE SUMMARY-Residence ---
Discharge Summary Providers to CC Resident Creating Document: GENESIS SENIOR, RES ~ Discharge Summary Admission Diagnosis: Acute on chronic respiratory failure Hospital Course DATE OF ADMISSION: 02/02/2025 DATE OF DISCHARGE: 02/13/2025 Discharge Diagnosis\Comment: Acute on chronic hypoxic respiratory failure COPD exacerbation Acute on chronic HFpEF, EF 60%, diastolic Generalized weakness Chronic DVT and PE Microcytic anemia Prostate cancer Hypertension Protein energy malnutrition (moderate) Operations\Procedures: None Consultants: None Complications: None Condition on DC: Stable Discharge Summary: HPI as per admitting physician: Patient is a 74-year-old male with history of chronic hypoxic respiratory failure 2/2 COPD, prostate cancer, skin cancer, hypertension, CHF, chronic DVT and PE who was brought to the ED due to generalized weakness and altered level of consciousness. Patient reports that he has been experiencing increasing weakness and shortness of breath for the past several weeks, he was in rehab for awhile ([facility]) and recently discharged. He states that he was initially feeling better, and he decided to purchase a mobile home and move independently from his sister's, however, he is again experiencing increasing weakness, shortness of breath, fatigue, intermittent confusion and recurrent falls. Today, he was found on the floor by neighbors and brought to the hospital. He reports he is tired of feeling like this, and he wishes to not proceed with any further treatments other than comfort measures. He reports he already refused any further treatment for his prostate cancer as well. Hospital course: During the hospitalization, the patient was managed with sup plemental oxygen, bronchodilator therapy (DuoNebs q4h), and conservative measures. His respiratory status improved gradually, with oxygen requirements decreasing from 6 L to 23 L to maintain SpO2 in the 9294% range. Chronic wheezing persisted on auscultation. No evidence of new infection was found. The patient opted for palliative care and declined further management for his prostate cancer and heart failure. He chose to continue supportive therapies, including oxygen, breathing treatments, and select home medications (Xarelto, Mucinex, and Tamsulosin). He declined GDMT for heart failure. Code status was changed to DNR with comfort care on 02/09/2025. He was started on [place] for pain management and clonazepam for anxiety. He remained hemodynamically stable throughout the stay and had no further significant respiratory distress after a brief episode of increased oxygen demand on 02/09/2025. After thorough [id number] discussions, the patient elected for hospice care. As of 02/12/2025, he was medically stable and pending discharge. The patient is being discharged to [facility] with hospice services in place. His point of contact is his friend, Jeronimo Diaz ([phone]). Physical examination today: Awake , alert, and oriented x4, in respiratory distress HEENT: Atraumatic, normocephalic, EOMI, anicteric sclera ; pink conjunctiva Neck: Trachea midline. Supple, full range of motion, no JVD Cardiac: Regular rhythm, regular rate with no murmurs all over the precordium. Respiratory: Equal breath sounds bilaterally, no tachypnea, no wheezing ,rub or rales, Chest wall is symmetric and without deformity. Gastrointestinal: Abdomen symmetric, non-distended, soft, non-tender, normal bowel sounds x4 quadrant, normoactive, no hepatosplenomegaly Neurological: Speech is clear, alert, and oriented x 4. No motor or sensory deficit, deep tendon reflexes normal, cerebellar intact. Cranial nerves II-XII intact. Skin: Warm and dry Advise on discharge: Continue management per hospice care Continue oxygen therapy as required *Problems/Diagnosis: (1) CHF (congestive heart failure) (2) COPD exacerbation Status: Acute (3) Hypoxic respiratory failure Status: Acute Total Time Spent on D/C: Up to 30 Minutes Date of Service: Feb 13, 2025 Billing Provider: BENITO HARTMANN MD Problem Qualifiers (1) Hypoxic respiratory failure: Chronicity: acute Qualified Codes: J96.01 - Acute respiratory failure with hypoxia GENESIS SENIOR, RES Feb 13, 2025 08:03
== END 2025-02-13 14:00 | disposition hospice, inpatient (51) | DRG 291 ==
LOC: ER 18:06 → ED HOLD 21:29 → SUR 3N 02-02 00:05 → ORTHO 4S 02-02 16:02 → SUR 3N 02-10 07:05
PROVIDERS: ADMIT Internal Medicine; ATTEND Internal Medicine
DX: I11.0 Hypertensive heart disease with heart failure (principal); I50.33 Acute on chronic diastolic (congestive) heart failure; J96.21 Acute and chronic respiratory failure with hypoxia; J44.1 Chronic obstructive pulmonary disease with (acute) exacerbation; E44.0 Moderate protein-calorie malnutrition; Z66 Do not resuscitate; F32.A Depression, unspecified; G89.29 Other chronic pain; I25.2 Old myocardial infarction; Z51.5 Encounter for palliative care; Z83.3 Family history of diabetes mellitus; Z86.718 Personal history of other venous thrombosis and embolism; Z86.711 Personal history of pulmonary embolism; Z68.22 Body mass index [BMI] 22.0-22.9, adult
CPT/HCPCS: 36415; 71045; 80048; 83880; 85025; 87081; 94640; 94664; 94668; 94760; 96374; 97110; 97116; 97162; 99285; A4615; A6212; A6213; A6258; A6449; G0378; J2270